=== PATIENT | male | born 1935 | race Caucasian/White ===

== ENCOUNTER 2018-04-27 07:34 | Inpatient (IN) ==
--- NOTE | 2018-04-27 08:03 | PROVIDER DOCUMENTATION ---
HPI-Fever - General Chief Complaint: Fever Stated Complaint: FEVER,SHAKING Time Seen by Provider: 04/27/18 08:02 Allergies/Adverse Reactions: Patient Allergies Allergy/AdvReac Type Severity Reaction Status Date / Time No Known Allergies Allergy Verified 04/01/18 13:23 Home Medications: Home Medication List Medication Instructions Recorded Confirmed Last Taken Type Aspirin [Aspir-Low] 81 mg PO AC 30 Days tablet. 12/22/17 04/27/18 04/03/18 21 :00 Rx Fluticasone/Salmeterol [Advair 1 puff IH BID 12/22/17 04/27/18 04/03/18 21:00 History 500-50 Diskus] Albuterol Sulfate [Ventolin Hfa] 18 gm IH PRN PRN 04/01/18 04/27/18 04/03/18 21: 00 History Amlodipine [Norvasc] 10 mg PO DAILY 04/01/18 04/27/18 04/04/18 04:30 History Apixaban [Eliquis] 5 mg PO BID 04/01/18 04/27/18 04/03/18 21:00 History Latanoprost 1 drop BOTH EYES QHS 04/01/18 04/27/18 04/03/18 21:00 History Losartan Potassium 50 mg PO DAILY 04/01/18 04/27/18 Unknown History Omeprazole 40 mg PO DAILY 04/01/18 04/27/18 04/03/18 21:00 History Propylene Glycol/Peg 400 [Systane 15 ml BOTH EYES BID 04/01/18 04/27/18 21:00 History 0.3-0.4% Eye Drops] Vit C/Vit E/[place]in/Min/[place]-3 1 each PO DAILY 04/01/18 04/27/18 04/03/18 21:00 History [Ocuvite Softgel] Hydrocodone/Acetaminophen [[place] 1 each PO Q6H PRN PRN #15 tablet 04/04/1804/27 Unknown Rx 10-325 Tablet] Ondansetron HCl [Zofran] 4 mg PO Q6H PRN PRN #5 tablet 04/04/18 04/27/18 Unknown Rx - History of Present Illness-Fever Nature of Presenting Problem: reports post-op fever on and off since apr 04, taken tylenol which controls the fever but came back. tmax 101.5. had bm not the last 3 days. and mild soreness/ sensitive to touch. some degrees nausea. history of asthma, HTN, GERD, prostate cancer. has a appt with his gen surgeon on may 20 Review of Systems - Adult - REVIEW OF SYSTEMS - ADULT Constitutional: reports: see HPI Eyes: reports: no symptoms reported Ears, Nose, Mouth & Throat: reports: no symptoms reported Cardiovascular: reports: no symptoms reported Respiratory: reports: no symptoms reported Gastrointestinal: reports: no symptoms reported Genitourinary: reports: no symptoms reported Musculoskeletal: reports: no symptoms reported Integumentary: reports: no symptoms reported Neurological: reports: no symptoms reported Psychiatric: reports: no symptoms reported Endocrine: reports: no symptoms reported Hematologic/Lymphatic: reports: no symptoms reported Allergic/Immunologic: reports: no symptoms reported All Other Systems: Reviewed and Negative Past History - Adult - PAST MEDICAL HISTORY-ADULT Review of Records: reports: Old Records Reviewed, Nursing Assessment Review, Medications Reviewed, Social history reviewed & non-contributory. Major Childhood Illnesses: reports: denies history Cardiovascular: reports: palpitations Respiratory: reports: asthma Gastrointestinal: reports: denies history Obstetrical/Gynecological: reports: denies history Genitourinary: reports: denies history Musculoskeletal: reports: denies history Neurological: reports: denies history Psychiatric: reports: denies history Endocrine/Immune: reports: denies history Other Conditions: reports: denies history - PRIOR SURGERIES/PROCEDURES Surgical/Procedure History: reports: cholecystectomy - IMMUNIZATION STATUS Childhood Immunizations: See Nurse Assessment Flu Vaccine: See Nurse Assessment - FAMILY HISTORY Family History: CAD over 55 yo, HTN, other (CHF) - SOCIAL HISTORY Smoking: denies Substance Use: none/never Alcohol Use Frequency: never Living Situation: family Physical Exam-General - PHYSICAL EXAM-ADULT Initial Vital Signs Reviewed: Yes - CONSTITUTIONAL General Appearance: appears well, alert, no apparent distress - EYES Eyes: PERRL/EOMI - HEAD, EARS, NOSE, MOUTH & THROAT HENMT: normocephalic/atraumatic, moist mucous membranes, hearing deficit - NECK Neck: non-tender, full range of motion - RESPIRATORY Respiratory: chest non-tender, lungs clear, normal breath sounds, no pleuratic chest pain - CARDIOVASCULAR Cardiovascular: normal peripheral pulses, regular rate, rhythm - GASTROINTESTINAL (ABDOMEN) Abdominal Exam: normal bowel sounds, other (2 incisions umbilical and lateral superior to the umbilicus) - MUSCULOSKELETAL Back Exam: normal inspection, no CVA tenderness, no vertebral tenderness Extremity: normal range of motion, non-tender, normal gait, normal inspection - SKIN Integumentary: normal color, normal turgor - NEUROLOGIC Neurologic: grossly normal, no motor/sensory deficits - PSYCHIATRIC Psych/Mental Status: normal mood/affect, normal thought content, normal thought process, oriented x 3 Progress - PLAN OF CARE/RESULTS Progress/Plan/Lab Results: Vital Signs - 8 hr 04/27/18 09:14 04/27/18 09:20 04/27/18 09:32 Pulse Rate 84 80 86 Respiratory Rate 23 14 20 Blood Pressure 128/71 149/69 O2 Sat by Pulse Oximetry 100 99 04/27/18 10:02 04/27/18 10:10 04/27/18 10:20 Pulse Rate 91 H 86 92 H Respiratory Rate 18 26 H 21 Blood Pressure 146/74 O2 Sat by Pulse Oximetry 98 98 99 04/27/18 10:30 04/27/18 10:32 04/27/18 10:40 Pulse Rate 89 94 H 97 H Respiratory Rate 20 19 20 Blood Pressure 141/74 O2 Sat by Pulse Oximetry 97 99 98 04/27/18 10:50 04/27/18 11:00 04/27/18 11:02 Pulse Rate 95 H 102 H 104 H Respiratory Rate 22 22 29 H Blood Pressure 146/81 O2 Sat by Pulse Oximetry 98 98 97 04/27/18 11:10 04/27/18 11:20 04/27/18 11:30 Pulse Rate 95 H 93 H 96 H Respiratory Rate 26 H 24 18 Blood Pressure O2 Sat by Pulse Oximetry 97 98 98 04/27/18 11:32 04/27/18 11:40 04/27/18 11:50 Pulse Rate 96 H 93 H 93 H Respiratory Rate 21 29 H 31 H Blood Pressure 142/64 O2 Sat by Pulse Oximetry 98 96 97 Laboratory Results - last 24 hr 04/27/18 04/27/18 04/27/18 08:50 08:55 08:55 WBC 12.25 H RBC 4.33 L Hgb 13.3 L Hct 40.1 L MCV 92.6 MCH 30.7 MCHC 33.2 RDW Std Deviation 12.1 Plt Count 380 MPV 9.8 Immature Gran % (Auto) 0.6 H Neut % (Auto) 79.2 H Lymph % (Auto) 9.5 L [place] % (Auto) 10.0 H Eos % (Auto) 0.4 Baso % (Auto) 0.3 Immature Gran # (Auto) 0.07 H Neut # (Auto) 9.70 H Lymph # (Auto) 1.16 L [place] # (Auto) 1.23 H Eos # (Auto) 0.05 Baso # (Auto) 0.04 PT INR PTT (Actin FS) Sodium 134 L Potassium 4.0 Chloride 92 L Carbon Dioxide 25 Anion Gap 17 BUN 29 H Creatinine 1.9 H Estimated GFR/1.73 m2 34 BUN/Creatinine Ratio 15 Glucose 106 H POC Glucose Calculated Osmolality 274 Calcium 8.9 Total Bilirubin 0.45 AST 20 ALT 24 Alkaline Phosphatase 98 Creatine Kinase 38 Troponin T Total Protein 6.2 L Albumin 3.5 Globulin 2.7 Albumin/Globulin Ratio 1.3 Plasma Lactate Urine Source VOIDED Urine Color YELLOW Urine Turbidity CLEAR Urine pH 5.5 Ur Specific [place] 1.023 Urine Protein 30 A Ur Glucose (Stick) NEGATIVE Ur Ketones (Stick) NEGATIVE Urine Blood NEGATIVE Urine Nitrite NEGATIVE Urine Bilirubin NEGATIVE Urobilinogen Dipstick NORMAL Urine Leukocytes NEGATIVE Urine WBC (Auto) <10 Urine RBC (Auto) <10 U Epithel Cells (Auto) <10 Urine Bacteria (Auto) NEGATIVE Urine Crystals Not Reportable Small Round Cells Not Reportable Urine Casts GRANULAR PRESENT Urine Yeast-like Cells Not Reportable 04/27/18 04/27/18 04/27/18 08:55 08:55 08:55 WBC RBC Hgb Hct MCV MCH MCHC RDW Std Deviation Plt Count MPV Immature Gran % (Auto) Neut % (Auto) Lymph % (Auto) [place] % (Auto) Eos % (Auto) Baso % (Auto) Immature Gran # (Auto) Neut # (Auto) Lymph # (Auto) [place] # (Auto) Eos # (Auto) Baso # (Auto) PT 18.3 H INR 1.41 PTT (Actin FS) 43.3 H Sodium Potassium Chloride Carbon Dioxide Anion Gap BUN Creatinine Estimated GFR/1.73 m2 BUN/Creatinine Ratio Glucose POC Glucose Calculated Osmolality Calcium Total Bilirubin AST ALT Alkaline Phosphatase Creatine Kinase Troponin T < 0.010 Total Protein Albumin Globulin Albumin/Globulin Ratio Plasma Lactate 2.6 H Urine Source Urine Color Urine Turbidity Urine pH Ur Specific [place] Urine Protein Ur Glucose (Stick) Ur Ketones (Stick) Urine Blood Urine Nitrite Urine Bilirubin Urobilinogen Dipstick Urine Leukocytes Urine WBC (Auto) Urine RBC (Auto) U Epithel Cells (Auto) Urine Bacteria (Auto) Urine Crystals Small Round Cells Urine Casts Urine Yeast-like Cells 04/27/18 04/27/18 10:57 12:08 WBC RBC Hgb Hct MCV MCH MCHC RDW Std Deviation Plt Count MPV Immature Gran % (Auto) Neut % (Auto) Lymph % (Auto) [place] % (Auto) Eos % (Auto) Baso % (Auto) Immature Gran # (Auto) Neut # (Auto) Lymph # (Auto) [place] # (Auto) Eos # (Auto) Baso # (Auto) PT INR PTT (Actin FS) Sodium Potassium Chloride Carbon Dioxide Anion Gap BUN Creatinine Estimated GFR/1.73 m2 BUN/Creatinine Ratio Glucose POC Glucose 113 H Calculated Osmolality Calcium Total Bilirubin AST ALT Alkaline Phosphatase Creatine Kinase Troponin T Total Protein Albumin Globulin Albumin/Globulin Ratio Plasma Lactate 1.4 Urine Source Urine Color Urine Turbidity Urine pH Ur Specific [place] Urine Protein Ur Glucose (Stick) Ur Ketones (Stick) Urine Blood Urine Nitrite Urine Bilirubin Urobilinogen Dipstick Urine Leukocytes Urine WBC (Auto) Urine RBC (Auto) U Epithel Cells (Auto) Urine Bacteria (Auto) Urine Crystals Small Round Cells Urine Casts Urine Yeast-like Cells Orders Category Date Time Status Cardiac Monitoring DIRECTED Care 04/27/18 08:04 Active Cardiac Monitoring DIRECTED Care 04/27/18 10:04 Active Finger Stick Blood Sugar (ED) DIRECTED Care 04/27/18 08:04 Active IV Insertion ORDERED Care 04/27/18 10:04 Completed Notify Physician As Ordered Care 04/27/18 10:04 Active Oxygen Therapy- ED Nursing DIRECTED Care 04/27/18 08:04 Active Saline Loc NOW Care 04/27/18 08:04 Active CHEST-1 VIEW [RAD] Stat Exams 04/27/18 10:[address] ABD/PELVIS W/ORAL CONT ONLY [CT] Stat Exams 04/27/18 11:22 Completed BLOOD CULTURE [BLDCUL] Stat Lab 04/27/18 09:15 Results CBC WITH ELECTRONIC DIFF [HEME] Stat Lab 04/27/18 08:55 Completed CK PROFILE [SP CHEM] Stat Lab 04/27/18 08:55 Completed COMPREHENSIVE METABOLIC PANEL [CHEM] Stat Lab 04/27/18 08:55 Completed LACTATE, PLASMA [CHEM] Lab 04/27/18 15:49 Ordered LACTATE, PLASMA [CHEM] Q3H Lab 04/27/18 12:08 Completed LACTATE, PLASMA [CHEM] Stat Lab 04/27/18 08:55 Completed PROTIME WITH INR [COAG] Stat Lab 04/27/18 08:55 Completed PTT [COAG] Stat Lab 04/27/18 08:55 Completed TROPONIN T Stat Lab 04/27/18 08:55 Completed URINALYSIS [URINALYSIS] Stat Lab 04/27/18 08:50 Completed URINE MANUAL MICROSCOPIC [URINALYSIS] Stat Lab 04/27/18 08:50 Completed 0.9% Sodium Chloride Inj [Ns] 1,000 ml Med 04/27/18 10:45 Active IV Wide Open Famotidine [Pepcid] Med 04/27/18 15:42 Discontinued 20 mg IV NOW ONE Piperacillin/Tazobactam [Zosyn] 3.375 gm Med 04/27/18 10:06 Discontinued 0.9% Sodium Chloride Inj [Ns] 50 ml IV NOW Sodium Chloride 0.9% Med 04/27/18 15:42 Discontinued 5 - 10 ml INJ NOW ONE Oxygen Device Stat Oth 04/27/18 10:04 Active EKG [EKG] Stat Ther 04/27/18 08:04 Ordered [facility] [address] [facility] [address], [place] [address] Department of Imaging Patient: JAXSON BAEZ ADM Date: 04/27/18 MR#: [id number] : 1935 ADM Status: REG ER Age/Sex: 83/M Room/Bed: Loc: ED Ordering Physician: Michelle Hatfield MD Family Physician: Sebas Pop MD Reason for Procedure: sob ___ Signed EXAM: CHEST-1 VIEW 04/27/2018 HISTORY: sob TECHNIQUE: AP portable upright at 1014 COMMENT: There is a fairly well-circumscribed nodular opacity which measures over 3.5 cm on the film just below the left hilum probably in the left lower lobe. There is a fairly large hiatal hernia. The nodule was not present on 12/22/2017. Otherwise the appearance the chest has not changed significantly. IMPRESSION: Nodule/mass left lower lobe. Electronically signed by Tashi Diggs 04/27/2018 10:23 AM 04/27/18 1023 Interpreting Physician: Tashi Diggs MD Dictated Date/Time: 04/27/18 1020 cc: Michelle Hatfield MD; Sebas Pop MD Result Diagrams: 04/27/18 08:55 04/27/18 08:55 - REASSESSMENT Reassessment #1 Time Reassessed: 14:58 Status: unchanged - CONSULTS/PCP/HOSPITALIST Notification #1 *Consult/PCP/Hospitalist*: Yary MEJÍA Time Discussed: 15:51 (PNA, sepsis) Consult Disposition: Admit Departure - Departure Date of Disposition Decision: 04/27/18 Time of Disposition Decision: 11:21 DIAGNOSIS: Pneumonia, Sepsis Disposition: ADMITTED INPATIENT 09 Certified Medical Emergency: Emergent Condition: Stable Referrals and Follow-Ups: Sebas Pop MD [Primary Care Provider] - - Critical Care Note This patient required my direct & personal management of CC.: No Attestation - Physician/ FELIX Attestation Patient care was provided by Advanced Practice Provider:: No The physician spent face to face time with patient:: Yes Advanced Practice Provider documentation review:: Supervising physician onsite and consulted in the evaluation and care of this patient. The physician did have a face to face encounter with the patient.
[2018-04-27 09:44] LABS: BILIRUBIN URINE NEGATIVE (NEGATIVE); BLOOD URINE NEGATIVE (NEGATIVE); COLOR YELLOW; GLUCOSE URINE NEGATIVE (NEGATIVE); KETONE URINE NEGATIVE (NEGATIVE); LEUKOCYTES URINE NEGATIVE (NEGATIVE); NITRITE URINE NEGATIVE (NEGATIVE); PH URINE 5.5; PROTEIN URINE 30 mg/dL (NEGATIVE); SP GRAVITY URINE 1.023; TURBIDITY URINE CLEAR (CLEAR); URINE SOURCE VOIDED; UROBILINOGEN URINE NORMAL (NORMAL)
[2018-04-27 09:45] LABS: BASO# 0.04 X1000 (0.0-0.2); BASO% 0.3 % (0.0-0.8)
[2018-04-27 09:54] LABS: EOS# 0.05 X1000 (0.0-0.7); EOS% 0.4 % (0.0-10.0); HEMATOCRIT 40.1 % (42.0-52.0); HEMOGLOBIN 13.3 g/dL (14.0-18.0); IMM GRAN# 0.07 X1000 (0.0-0.04); IMM GRAN% 0.6 % (0.0-0.5); INR 1.41; LYMPH# 1.16 X1000 (1.2-3.4); LYMPH% 9.5 % (20.5-51.1); MCH 30.7 PG (27-31); MCHC 33.2 g/dL (33-37); MCV 92.6 FL (81-99); MONO# 1.23 X1000 (0.11-0.59); MPV 9.8 FL (7.4-10.4); NEUT% 79.2 % (42.2-75.2); PLT 380 X1000 (130-400); PROTIME 18.3 Seconds (11.0-16.0); RBC 4.33 XMIL (4.7-6.1); RDW 12.1 % (11.5-14.5); WBC 12.25 X1000 (4.8-10.8)
[2018-04-27 09:55] LABS: PTT 43.3 Seconds (22.3-41.8)
[2018-04-27 09:59] LABS: UR EPITHELIAL CELLS <10 /HPF (<10); URINE BACTERIA NEGATIVE /HPF; URINE RBC <10 /HPF (<10); URINE WBC <10 /HPF (<10)
[2018-04-27] MEDS ORDERED: ZOSYN 3.375 GM in NS 50 ML IV ONE (10:06)
[2018-04-27 10:07] LABS: URINE CASTS GRANULAR PRESENT
[2018-04-27 10:15] LABS: ALB/GLOB RATIO 1.3; ALBUMIN 3.5 g/dL (3.5-5.0); CALCIUM 8.9 mg/dL (8.8-10.2); CREATININE 1.9 mg/dL (0.7-1.2); TOTAL BILIRUBIN 0.45 mg/dL (0.20-1.00); TOTAL PROTEIN 6.2 g/dL (6.3-8.3)
--- NOTE | 2018-04-27 10:25 | Diag Imaging Result Doc PS360 ---
EXAM: CHEST-1 VIEW 04/27/2018 HISTORY: sob TECHNIQUE: AP portable upright at 1014 COMMENT: There is a fairly well-circumscribed nodular opacity which measures over 3.5 cm on the film just below the left hilum probably in the left lower lobe. There is a fairly large hiatal hernia. The nodule was not present on 12/22/2017. Otherwise the appearance the chest has not changed significantly. IMPRESSION: Nodule/mass left lower lobe. Electronically signed by Tashi Diggs 04/27/2018 10:23 AM
[2018-04-27] MEDS ORDERED: NS 1,000 ML IV SCH (10:45)
--- NOTE | 2018-04-27 14:09 | GENERAL SURGERY CONSULTATION ---
DATE: 04/27/2018 TIME: 11:12 a.m. SUBJECTIVE: I have been asked to see Mr. St by Dr. Hatfield in the ED. Mr. St is 83 years old and had a robotic ventral hernia repair by Dr. Pan on 04/04/2018. He saw Dr. Pan 2 weeks later; that is around 04/18/2018, and was felt to be doing satisfactorily. He presents today because of some shaking and, yesterday, he had the shaking associated with fever over 101. He says the shaking has occurred since surgery but has not been associated with any fever that he is aware until yesterday. So what he was really alarmed about was the fact that he had fever yesterday associated with shaking. He has not contacted his medical doctor, Dr. Sebas Pop, about this. Apparently, Dr. Pan was not concerned about it at the time of the postoperative visit. Mr. St states that he has been eating. His bowels have been moving. His abdominal exam actually shows less distention and that is probably because of the repair of the hernia. He is chronically constipated and is on Linzess. He does report some cough recently. He has a past history of some asthma and gastroesophageal reflux disease. Some hypertension, history of prostate cancer. MEDICATIONS AT HOME: 1. Advair Diskus. 2. Amlodipine. 3. Eliquis. 4. Latanoprost ophthalmic solution. 5. Losartan. 6. Omeprazole. 7. Prednisone. 8. Ventolin. 9. Triamterene. ALLERGIES: He has no known drug allergies. SOCIAL HISTORY: He denies tobacco usage. Denies alcohol use. He does live at home with his . He is attended today by his nephew. PAST SURGICAL HISTORY: Previous surgery includes an appendectomy, cataract surgery, cholecystectomy, and prostatectomy. FAMILY HISTORY: Noncontributory. REVIEW OF SYSTEMS: This is primarily noted for the fever yesterday, the shaking. His other subsystems are okay. He does report a cough as well. PHYSICAL EXAMINATION: Vital Signs: On examination, in the emergency department , he is afebrile. Heart rate is 89, respiratory rate 20, blood pressure 146/74. General: He is awake, alert, and communicated. He does have a bit of a tremor. He has bilateral breath sounds. Heart: Regular rate and rhythm. Abdomen: Nontender. Bowel sounds are hypoactive. His wounds looked completely normal. There is no evidence of infection. DIAGNOSTICS/LABS: White count is 12,200. Hemoglobin 13.3, hematocrit 40, ProTime 18.3. INR 1.4. BUN 29, creatinine 1.2. ASSESSMENT: His abdominal exam is completely benign. He is 3 weeks after robotic ventral hernia repair. I did not think he has any intra-abdominal process that is causing his symptoms. His fever is probably related to something else, possibly an upper respiratory infection. I have discussed this with him as well as Dr. Hatfield, the ER physician. cc: Dionisio Gomez MD MTDD
--- NOTE | 2018-04-27 14:20 | Diag Imaging Result Doc PS360 ---
EXAM: CT ABD/PELVIS W/ORAL CONT ONLY 04/27/2018 HISTORY: ABSCESS TECHNIQUE: This exam was performed using automated exposure control, adjustment of mA or kV according to patient size, and/or use of iterative reconstruction technique. COMMENT: There is dense opacification of the visualized portion of the superior segment of the left lower lobe. There is atelectasis in the posterior costophrenic sulcus. Neither of these findings were present on the previous study of 09/30/2010. There is a large hiatal hernia which was present previously. There is a small left pleural effusion. There has been cholecystectomy. The spleen and adrenal glands pancreas and liver are grossly stable in appearance considering the lack of intravenous contrast on the current study. There is no evidence of abdominal aortic aneurysm or significant adenopathy. The small bowel is not distended. There is some stool in the right colon and transverse colon. The kidneys are without evidence of stones or hydronephrosis. There is a fairly large cyst in the lower pole of the right kidney measuring 3.7 cm in diameter. This is considerably smaller at the time the previous study. There is a prominent extrarenal pelvis on the right side which was also present at the time the previous study. Pelvis: There is oral contrast throughout most of the jejunum and all of the ileum. There are a few diverticula in the sigmoid colon without evidence of diverticulitis. There is no evidence of free fluid. The urinary bladder is unremarkable. There are bilateral fat-containing inguinal hernias. There has apparently been prostatectomy since the previous examination there is extensive arteriosclerosis. The regional skeleton is intact. IMPRESSION: Left lower lobe pneumonia. The possibility of neoplastic disease cannot be entirely excluded however. Electronically signed by Tashi Diggs 04/27/2018 2:18 PM
[2018-04-27] MEDS ORDERED: PEPCID IV ONE (15:42)
[2018-04-27] MEDS ORDERED: SODIUM CHLORIDE 0.9% INJ ONE (15:42)
[2018-04-27] MEDS ORDERED: DUONEB (A & A) INH PRN (15:57)
[2018-04-27] MEDS ORDERED: TYLENOL PO PRN (15:57)
[2018-04-27] MEDS ORDERED: VANCOMYCIN IV PER PHARMACY MISC SCH (16:00)
[2018-04-27] MEDS ORDERED: DULCOLAX PR ONE (16:29)
[2018-04-27] MEDS ORDERED: MYLICON PO PRN (16:29)
[2018-04-27] MEDS ORDERED: LACTULOSE PO ONE (16:29)
[2018-04-27] MEDS ORDERED: TUMS EXTRA STRENGTH PO ONE (16:29)
[2018-04-27] MEDS ORDERED: MYLICON PO ONE (16:29)
[2018-04-27] MEDS ORDERED: DULCOLAX PR PRN (16:29)
[2018-04-27] MEDS ORDERED: LACTULOSE PO PRN (16:29)
[2018-04-27] MEDS ORDERED: NS 1,000 ML IV ONE (16:30)
[2018-04-27] MEDS ORDERED: VANCOMYCIN 2 GM in NS 500 ML IV ONE ×2 (18:00→20:00)
[2018-04-27] MEDS: NORCO-10 PO PRN (18:11)
[2018-04-27] MEDS: NS 1,000 ML IV SCH (18:13)
[2018-04-27] MEDS: ZOSYN 3.375 GM in NS 50 ML IV SCH ×2 (18:13→22:37)
[2018-04-27] MEDS: PROTONIX IV SCH (18:13)
[2018-04-27] MEDS: TUMS EXTRA STRENGTH PO SCH ×2 (18:14→22:37)
--- NOTE | 2018-04-27 18:28 | HISTORY AND PHYSICAL ---
PRIMARY CARE PROVIDER: Dr. Sebas Pop. Last visit was in December 2017. GENERAL SURGEON: Most recently, Dr. Shanthi Pan. CHIEF COMPLAINT: Abdominal pain with excessive belching and shortness of breath. HISTORY OF PRESENT ILLNESS: Mr. Kemal St is an 83-year-old male with a medical history of asthma, severe gastroesophageal reflux disease due to a very large hiatal hernia, hypertension, and chronic atrial fibrillation, on Eliquis therapy. On 2017 as an outpatient procedure, he had robotic ventral hernia repair by Dr. Pan. Between the 2 weeks that he saw him from April 04 to April 18, he noticed that he was starting to get a little more weak. He was having more belching and more abdominal gastric distention and discomfort with nausea, but no vomiting, and was pretty routinely constipated. He only has bowel movements every 3-4 days. He feels like he has gotten weaker, but no change in his appetite. He visited with Dr. Pan, who told him to continue trying to improve his activities and that everything looked satisfactory, and he was supposed to return to see him once again on May 20. He presented with these complaints here. Dr. Gomez evaluated the patient at the bedside due to the fact that he has had recent surgery. His abdominal exam at that time was benign. Also noted that he has had fever and tachycardia. He had an elevated lactate and elevated white blood cell count. A CT of the abdomen and pelvis revealed that he actually has a left lower lobe pneumonia on top of having the large hiatal hernia. So, likely his abdominal discomfort is due to constipation on top of having a large hiatal hernia causing significant reflux, for which he takes Pepcid AC frequently throughout the day, which also adds to his excessive gas. His belly is a little hyperactive with very soft, air-like palpation, which is likely causing his abdominal pain and belching. So we will admit, treat for the pneumonia, and try to help his GI tract improve so he will not have so much abdominal pain. He does state that he has a cough with some white phlegm that is productive, and that he had a fever of 101.5 last night. PAST MEDICAL HISTORY: 1. Asthma. 2. GERD. 3. Large hiatal hernia. 4. Hypertension 5. Prostate cancer status post prostatectomy. 6. Chronic atrial fibrillation with frequent variation between fibrillation and sinus tachycardia. 7. Bilateral glaucoma. 8. Chronic constipation. 9. Bilateral fat-containing inguinal hernias. PAST SURGICAL HISTORY: 1. Robotic ventral hernia repair on 04/04/[address] Pan. 2. Appendectomy. 3. Cholecystectomy. 4. Prostatectomy. 5. Cataract surgery. SOCIAL HISTORY: Quit smoking around age 32, he says approximately 40 years ago. Prior to that, he smoked less than half a pack per day for at least 10 years. He denies smokeless tobacco. He has rare alcohol use. No illicit drugs. He lives at home with his . FAMILY HISTORY: Mother had hypertension and diabetes. Father had congestive heart failure. ALLERGIES: No known drug allergies. HOME MEDICATIONS: 1. Latanoprost in both eyes at night. 2. Albuterol sulfate p.r.n. 3. Norvasc 10 mg p.o. daily. 4. Eliquis 5 mg p.o. twice daily. 5. Advair 500-50, 1 puff inhaled twice daily. 6. Losartan potassium 50 mg p.o. daily. 7. Omeprazole 40 mg p.o. daily. 8. Systane in both eyes twice daily. 9. Ocuvite Softgel vitamins once daily. 10.Aspirin 81 mg p.o. daily. 11.Bob White 10, 1 p.o. every 6 hours p.r.n.. 12.Zofran 4 mg p.o. every 6 hours p.r.n. 13.(Not listed on home medication reconciliation): He does take Linzess as well. 14.He also takes Pepcid AC very frequently. REVIEW OF SYSTEMS: A 14-point review of systems is completed, and all are negative other than those mentioned above in the HPI. Positives are: 1. Subjective fever of 101.5 last night. 2. He has had nausea but no vomiting. 3. He has had constipation with bowel movements only every 3-4 days, with the last one being 3 days ago. 4. He has had abdominal pain with excessive belching. 5. He does have chills. 6. He has shortness of breath and decreased energy. PHYSICAL EXAMINATION: VITAL SIGNS: Temperature 98.1, heart rate 93, respiratory rate 21, blood pressure 142/64, O2 saturation 98% on room air. GENERAL: Mr. Kemal St is an 83-year-old male. He is in no acute distress. He is able to answer questions appropriately. He is hard of hearing. HEENT: Atraumatic, normocephalic. Pupils equal, round, and reactive to light. Extraocular movements are intact. Mucous membranes are dry. NECK: Trachea midline. CARDIOVASCULAR: S1 and S2, tachycardic rate and rhythm, but bounces in and out between an irregularly irregular tachycardic rate as well. He has +2 radial and dorsalis pedis pulses. Negative for JVD or carotid bruits. PULMONARY: Clear to auscultate. Bilateral breath sounds decreased in the bases. No accessory muscle use or work of breathing noted. Tolerating room air. GI: Soft. Mildly distended. Nontender with palpation. Hyperactive bowel sounds. EXTREMITIES: Moves all extremities equally with full range of motion. About 4/ 5 strength in all extremities. NEUROLOGIC: Alert and oriented x3. Follows commands. Sensory is intact. SKIN: Warm, dry and intact. There is some bruising over the incisional sites on the abdomen from the robotic surgery that appear to be healing quite well. There are no signs or symptoms of infection in those sites. LABORATORY DATA: White blood cells 12,000, hemoglobin 13, hematocrit 40, platelet count 380. INR is 1.41. PTT is 43.3. Sodium 134, potassium 4, BUN 29, creatinine 1.9, glucose 106. Calcium is 8.9, bilirubin 0.45, AST 20, ALT 24. CK 38, troponin less than 0.01, albumin 3.5. First serum lactate was 2.6, the second one 1.4, and the third one 1.2. Urinalysis showed 30 protein, otherwise negative. IMAGING: Chest x-ray: Nodule or mass in the left lower lobe. Abdomen and pelvis CT: Left lower lobe pneumonia. The possibility of neoplastic disease could not entirely be excluded, however. It does show that there is a large hiatal hernia that is not new. ASSESSMENT/PLAN: 1. Fever, chills, and signs of sepsis with left lower lobe pneumonia. He will be started on broad- spectrum antibiotics. He was given IV fluids. His lactate has now returned back to normal. Pulmonary toilet. 2. Asthma. Continue with nebulizers as needed and inhalers that he takes at home. 3. Epigastric discomfort with excessive gas and large hiatal hernia. This could be due to having backup of constipation, but we will do Tums for the gas and Pepcid also for the gas, and a proton pump inhibitor, Protonix IV twice daily. 4. Constipation. Will continue with Linzess. He can take MiraLAX. We have several p.r.n. medications like lactulose, and we will schedule Marley-Colace. We will give him a suppository as well to help get him regulated. The hiatal hernia with the constipation can add to the severe epigastric pain because he is having excessive gas with it. 5. Chronic paroxysmal atrial fibrillation. He goes in and out. He will be sinus tachycardia, and then he will be in fibrillation, and the rates are in the low 100s. We will continue with his Eliquis for now. 6. Hypertension. Continue home medications. 7. Dehydration with mild acute kidney injury. He will receive IV fluid hydration, and will recheck in the morning. 8. Deep venous thrombosis prophylaxis. He is on Eliquis. Dictated by ALFONZO Schwab for Jose Antonio Hills MD Addendum: Patient seen and examined by myself. Agree with ALFONZO note. It reflects my assessment and plan. Patient is being admitted to hospital for left lower lobe pneumonia. Will start IV antibiotics. For abdominal discomfort general will do CT abdomen and pelvis and will go from there. He has chronic A fib but his heart rate is controlled so will continue with home medications. Will monitor him closely. cc: ALFONZO Schwab MD [facility]
[2018-04-27] MEDS: ADVAIR 500/50 DISKUS INH SCH (19:30)
[2018-04-27] MEDS: SYSTANE EYE DROPS BOTH EYES SCH (22:36)
[2018-04-27] MEDS: PERICOLACE PO SCH (22:36)
[2018-04-27] MEDS: ELIQUIS PO SCH (22:36)
[2018-04-27] MEDS: XALATAN 0.005% OPH SOLN BOTH EYES SCH (22:52)
[2018-04-28] MEDS: NS 1,000 ML IV SCH ×4 (00:37→17:23)
[2018-04-28] MEDS: PROTONIX IV SCH ×3 (03:38→17:24)
[2018-04-28] MEDS: ZOSYN 3.375 GM in NS 50 ML IV SCH ×5 (03:55→22:55)
[2018-04-28] MEDS: LINZESS PO SCH (06:40)
[2018-04-28] MEDS ORDERED: PRILOSEC PO SCH (07:00)
[2018-04-28 07:15] LABS: BASO# 0.02 X1000 (0.0-0.2); BASO% 0.3 % (0.0-0.8); EOS# 0.02 X1000 (0.0-0.7); EOS% 0.3 % (0.0-10.0); HEMATOCRIT 33.8 % (42.0-52.0); HEMOGLOBIN 11.2 g/dL (14.0-18.0); IMM GRAN# 0.04 X1000 (0.0-0.04); IMM GRAN% 0.5 % (0.0-0.5); LYMPH# 0.91 X1000 (1.2-3.4); LYMPH% 11.4 % (20.5-51.1); MCHC 33.1 g/dL (33-37); MCV 93.6 FL (81-99); MONO# 0.63 X1000 (0.11-0.59); MONO% 7.9 % (1.7-9.3); MPV 9.3 FL (7.4-10.4); NEUT# 6.37 X1000 (1.4-6.5); NEUT% 79.6 % (42.2-75.2); PLT 276 X1000 (130-400); RBC 3.61 XMIL (4.7-6.1); RDW 12.1 % (11.5-14.5); WBC 7.99 X1000 (4.8-10.8)
[2018-04-28 07:35] LABS: ALBUMIN 2.8 g/dL (3.5-5.0); CREATININE 1.4 mg/dL (0.7-1.2); POTASSIUM 3.8 mmol/L (3.5-5.1); TOTAL BILIRUBIN 0.41 mg/dL (0.20-1.00); TOTAL PROTEIN 5.6 g/dL (6.3-8.3)
[2018-04-28] MEDS: NORVASC PO SCH (08:07)
[2018-04-28] MEDS: TUMS EXTRA STRENGTH PO SCH ×4 (08:07→20:20)
[2018-04-28] MEDS: COZAAR PO SCH (08:07)
[2018-04-28] MEDS: PERICOLACE PO SCH ×2 (08:07→20:20)
[2018-04-28] MEDS: OCUVITE LUTEIN & ZEAXANTHIN PO SCH (08:07)
[2018-04-28] MEDS: SYSTANE EYE DROPS BOTH EYES SCH ×2 (08:07→20:20)
[2018-04-28] MEDS: ELIQUIS PO SCH ×2 (08:07→20:20)
[2018-04-28] MEDS: ASPIRIN EC PO SCH (08:07)
[2018-04-28] MEDS: NORCO-10 PO PRN ×2 (08:12→14:13)
[2018-04-28] MEDS ORDERED: MIRALAX PO SCH (09:00)
--- NOTE | 2018-04-28 16:23 | Diag Imaging Result Doc PS360 ---
EXAM: CT THORAX W/O CONTRAST 04/28/2018 HISTORY: lung mass TECHNIQUE: This exam was performed using automated exposure control, adjustment of mA or kV according to patient size, and/or use of iterative reconstruction technique. COMMENT: There are no previous thoracic studies available for comparison. Comparison is made with the previous abdominal studies of 04/27/2018 and 09/30/2010 where possible. There is dense alveolar opacity in the superior segment of the left lower lobe which has increased considerably in extent since the previous abdominal study of 04/27/2018. Given the rapid change, this is probably related to a round pneumonia. There are some platelike atelectasis in the posterior costophrenic sulcus of the right lower lobe which has not changed appreciably since the previous abdominal study. There is a right pleural effusion which was also present previously but has increased slightly in volume. There is a hiatal hernia. There is no evidence of significant adenopathy. The regional skeleton is intact. IMPRESSION: Left lower lobe pneumonia and pleural effusion. Electronically signed by Tashi Diggs 04/28/2018 4:21 PM
[2018-04-28] MEDS: SODIUM CHLORIDE 0.9% INJ SCH (17:24)
--- NOTE | 2018-04-28 19:07 | PROGRESS NOTE ---
DATE: 04/28/2018 SUBJECTIVE: The patient reports feeling fine. Breathing better comparing with yesterday. No abdominal pain. No belching, but he reports that he has poor appetite that he attributes to his hiatal hernia. OBJECTIVE: Vital Signs: Temperature 100.1, heart rate 88, respiratory rate 17 , blood pressure 111/60, O2 sat 99% on room air. General: This is an 83-year-old male lying in bed in no acute distress. Cardiovascular: S1, S2 heard. No murmurs, gallops or rubs. Irregularly irregular heart rhythm. Respiratory: Clear bilaterally to auscultation. No work of breathing or using accessory muscles. Abdomen: Soft, a little bit distended, but nontender to palpation. Hyperactive bowel sounds. No organomegaly noted. Neurologic: Patient is alert and oriented x 3. Moves 4 extremities. LABORATORY DATA: Reviewed and white count 7.99, with hemoglobin 11.2, 134. Creatinine 1.4. ASSESSMENT AND PLAN: 1. Left lower lobe pneumonia. We will continue with antibiotics. In this case , the patient is an vancomycin and Zosyn. Considering his renal dysfunction, I would rather prefer to switch antibiotics to ceftaroline one 600 mg q.12. We will continue with same management. 2. Epigastric discomfort. The patient reports that the hiatal hernia symptoms are getting worse and family requests to have a consultation with Dr. Gilles Sandoval who is his primary GI. We will definitely follow that suggestion. 3. Pulmonary nodule. The abdomen pelvis CT shows a dense opacification in the superior segment of the left lower lobe. Also, the x-ray showed a nodular mass in the left lower lobe. That is the reason why I prefer to do a CT of the chest without contrast to have better visualization of the lung anatomy and depending upon the result we will consult Pulmonary. 4. Paroxysmal atrial fibrillation. We will continue with Eliquis for now. 5. Hypertension. Blood pressure is under control. We will continue with same management. 6. Acute kidney injury. Creatinine continues to improve after IV fluids were provided. We will continue with same management. 7. Disposition. Depending upon the results of the CAT scan of the chest we will see if we need to consult Pulmonary. cc: Jose Antonio Hills MD MTDD
[2018-04-28] MEDS: ADVAIR 500/50 DISKUS INH SCH (19:25)
[2018-04-28] MEDS: XALATAN 0.005% OPH SOLN BOTH EYES SCH (20:22)
[2018-04-29] MEDS: NS 1,000 ML IV SCH ×2 (02:32→10:41)
[2018-04-29] MEDS ORDERED: VANCOMYCIN 1.6 GM in NS 250 ML IV SCH ×2 (03:00→20:00)
[2018-04-29] MEDS: PROTONIX IV SCH (05:56)
[2018-04-29] MEDS: LINZESS PO SCH ×2 (05:57→06:35)
[2018-04-29] MEDS: ZOSYN 3.375 GM in NS 50 ML IV SCH ×2 (05:57→10:40)
[2018-04-29] MEDS: SODIUM CHLORIDE 0.9% INJ SCH (05:57)
[2018-04-29] MEDS: ADVAIR 500/50 DISKUS INH SCH ×2 (08:00)
[2018-04-29] MEDS ORDERED: MIRALAX PO ONE (09:59)
[2018-04-29 10:18] LABS: BASO# 0.02 X1000 (0.0-0.2); BASO% 0.3 % (0.0-0.8); EOS# 0.02 X1000 (0.0-0.7); EOS% 0.3 % (0.0-10.0); HEMATOCRIT 33.9 % (42.0-52.0); HEMOGLOBIN 11.2 g/dL (14.0-18.0); IMM GRAN# 0.04 X1000 (0.0-0.04); IMM GRAN% 0.6 % (0.0-0.5); LYMPH# 1.32 X1000 (1.2-3.4); LYMPH% 18.8 % (20.5-51.1); MCH 30.7 PG (27-31); MCV 92.9 FL (81-99); MONO# 0.56 X1000 (0.11-0.59); NEUT# 5.06 X1000 (1.4-6.5); PLT 252 X1000 (130-400); RBC 3.65 XMIL (4.7-6.1); WBC 7.02 X1000 (4.8-10.8)
[2018-04-29 10:35] VITALS: BP 125/60
[2018-04-29 10:35] LABS: AGAP 13; BUN 11 mg/dL (8-22); CALCIUM 8.3 mg/dL (8.8-10.2); CHLORIDE 102 mmol/L (98-107); COSMO 271; CREATININE 1.1 mg/dL (0.7-1.2); ESTIMATED GFR > 60; GLUCOSE 100 mg/dL (70-104); POTASSIUM 3.4 mmol/L (3.5-5.1); SODIUM 136 mmol/L (136-145); TCO2 21 mmol/L (25-35)
[2018-04-29] MEDS: ASPIRIN EC PO SCH (10:39)
[2018-04-29] MEDS: TUMS EXTRA STRENGTH PO SCH (10:39)
[2018-04-29] MEDS: NORVASC PO SCH (10:39)
[2018-04-29] MEDS: ELIQUIS PO SCH (10:39)
[2018-04-29] MEDS: COZAAR PO SCH (10:39)
[2018-04-29] MEDS: PERICOLACE PO SCH (10:39)
[2018-04-29] MEDS: OCUVITE LUTEIN & ZEAXANTHIN PO SCH (10:42)
[2018-04-29] MEDS: SYSTANE EYE DROPS BOTH EYES SCH (10:44)
--- NOTE | 2018-04-29 12:01 | PROGRESS NOTE ---
DATE: 04/29/2018 please see the dictated note for 04-29-18 cc: Gilles Sandoval MD MTDNeymar
--- NOTE | 2018-04-29 12:02 | CONSULTATION ---
DATE OF CONSULTATION: 04/29/2018 REFERRING PHYSICIAN: Jose Antonio Hills MD PRIMARY CARE DOCTOR: Sebas Pop MD. REASON FOR CONSULTATION: Abdominal discomfort, bloating, burping. HISTORY OF PRESENT ILLNESS: Mr. St is an 83-year-old male, who was admitted on 04/27/2018 for symptoms of abdominal discomfort with excessive belching and shortness of breath. He has history of reflux disease and longstanding Aquino's. His last colonoscopy was done in 2015, which showed diverticulosis and constipation. His EGD was done in January 2017 which showed a long segment Aquino's which was biopsied and indeterminate for dysplasia. The patient also has history of chronic atrial fibrillation and has been on Eliquis. He was admitted for worsening belching and burping and bloating and discomfort in the upper abdomen. He also complained of some shortness of breath in the hospital. A CT scan was done which showed evidence of left lower lobe pneumonia and large hiatal hernia. Gastroenterology is consulted for further management. PAST MEDICAL HISTORY: Aquino's esophagus. Hiatal hernia. Reflux disease. Diverticulosis. Hypertension. Prostate cancer, status post prostatectomy. Chronic atrial fibrillation. Bilateral glaucoma. Chronic constipation. Bilateral fat-containing inguinal hernia. PAST SURGICAL HISTORY: Robotic ventral hernia repair on 04/04/[address] Pan. Appendectomy. Cholecystectomy. Prostatectomy. Cataract surgery. EGD and colonoscopy 2015. EGD in January 2017. SOCIAL HISTORY: He quit smoking around age 32. He has rare alcohol use. No illicit drug abuse. He lives at home with his . FAMILY HISTORY: Mother had hypertension, diabetes. Father had congestive heart failure. ALLERGIES: No known drug allergies. MEDICATIONS IN THE HOSPITAL: Latanoprost, Tylenol Albuterol/ipratropium, Norvasc, Eliquis 5 mg p.o. b.i.d., aspirin 81 mg every day, Dulcolax 10 mg every 6 hours as needed, hydrocodone/acetaminophen, iron C b.i.d., lactulose 30 mL p.o. daily as needed, Linzess 290 mcg every day, Cozaar 50 mg every day, normal saline 1-2 times per hour every day, Protonix 40 mg IV b.i.d., MiraLAX 17 g p.o. daily, Marley-Colace 2 capsules p.o. b.i.d., Mylicon 4 times a day as needed, multivitamin and Zosyn. DIET: He is currently on a regular diet. REVIEW OF SYSTEMS: Denies any current fevers, rigors, chills, chest pain, or shortness of breath at the moment. He denies any vomiting blood or passing blood in the stools. He does complain of constipation and bloating. He does complain of belching and bloating. He denies any black stools. He does have history of arthritis. Denies any neurologic complaints. OBJECTIVE: Vital signs: Temperature 98.9, pulse rate 69, respiratory rate 22, blood pressure 132/59, saturating 98% on room air. Body weight of 171 pounds, BMI 23.8 kg/m2. General appearance: Moderately built, moderately nourished, lying in bed, in no acute distress. HEENT: Mild pallor. No icterus. Pupils equal, reactive to light. Neck: Supple. Abdomen: Protuberant, tympanic on percussion. No rebound or guarding. Extremities: No cyanosis, clubbing. Neurologic: Alert, awake, oriented x3. LABORATORIES: Hemoglobin and hematocrit is 11.2 and 33.9, white count of 7.02, platelet count of 232,000. Sodium 138, potassium 3.8, chloride 99, bicarb of 24, anion gap 11, BUN of 19, creatinine 1.4, glucose 93, calcium is 8, total bilirubin is 0.41, AST 18, ALT 22, alkaline phosphatase 98, total protein 5.6, albumin of 2.8. Blood culture x2 negative at 48 hours from 04/27/2018. IMAGING: An abdominal and pelvic CT scan on 04/27/2018 showed left lower lobe pneumonia, small left pleural effusion. There has been cholecystectomy. Some stool in the right colon, transverse colon. Fairly large cysts in the lower pole of the right kidney measuring 3.7 cm in diameter. Oral contrast throughout most of jejunum and all the ileum. A few diverticula in the sigmoid colon without evidence of diverticulitis. There are bilateral fat-containing inguinal hernia. There has apparently been prostatectomy. There is extensive arteriosclerosis. IMPRESSION AND PLAN: 1. Epigastric discomfort. 2. Belching and burping. 3. Bloating. 4. Constipation. 5. Large hiatal hernia. 6. 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 7. Left lower lobe pneumonia. 8. Paroxysmal atrial fibrillation. 9. Anemia. RECOMMENDATIONS: 1. We will continue on Protonix twice daily. On discharge, he will take Prilosec 40 mg twice daily for now. Continue to follow gastroesophageal reflux life changes. Avoid excessive tea, coffee, soda, tomatoes, onions, spicy foods. 2. The patient will need a repeat EGD. We will get it scheduled as an outpatient. Before the EGD, may have to come off aspirin and Eliquis for a few days. 3. For constipation, continue Linzess 290 mcg every day and we will start him on MiraLAX twice daily. 4. We will start him on Iron C b.i.d. and multivitamin once daily for anemia. 5. The patient will call office to schedule an outpatient EGD. We also offered inpatient EGD, but the patient has to be off Eliquis for 24 to 48 hours before proceeding. The patient is likely going home today, so he will call us as an outpatient and schedule an appointment. 6. The above plan of care discussed with the patient and all questions answered. Please call us with any further questions. cc: MD Sebas Asif MD
[2018-04-29] MEDS ORDERED: ICAR-C PO SCH (21:00)
[2018-04-29] MEDS ORDERED: MIRALAX PO SCH (21:00)
--- NOTE | 2018-04-30 05:43 | DISCHARGE SUMMARY ---
ADMISSION DATE: 04/27/2018 DISCHARGE DATE: 04/29/2018 DISCHARGE DIAGNOSES: 1. Left lower lobe pneumonia. 2. Hiatal hernia. 3. Constipation. 4. Chronic paroxysmal atrial fibrillation on anticoagulation. 5. Hypertension. 6. Acute kidney injury, resolved. CONSULTATIONS: 1. Dr. Sandoval from GI. 2. Dr. Dionisio Gomez from General Surgery. PROCEDURES: 1. Chest x-ray done on admission shows nodule/mass in the left lower lobe. 2. CT of the abdomen and pelvis showed left lower lobe pneumonia with possibility of neoplastic disease, cannot be entirely excluded. 3. Chest CT showed left lower lobe pneumonia and pleural effusion. HOSPITAL COURSE: This is an 83-year-old male with past medical history of asthma, severe gastroesophageal reflux disease, due to a very large hiatal hernia, and chronic atrial fibrillation on Eliquis. He came to the emergency department complaining of some abdominal pain. So, he was evaluated by general surgeon. Also, we found out in the imaging that he had a left lower lobe pneumonia. The CT of the abdomen described a nodule in the lung that was completely ruled out, by the CT of the chest. The patient had elevated white cell count with mild subjective difficulty in breathing, but he was not requiring any oxygen supplementation. The patient started feeling better. So also, we consulted Dr. Sandoval, at the request to the family. He was evaluated by him, and he recommends an endoscopy as an outpatient, considering that he needs to be on Eliquis for at least a few days. The patient is breathing better, never requiring any oxygen supplementation. So, we are going to send this patient home with self care. DISCHARGE PHYSICAL EXAMINATION: Vital signs: Temperature 99.2 degrees, heart rate 70, respiratory rate 20, blood pressure 125/60, O2 saturation 98% on room air. General: This is an 83-year-old male, lying in bed, in no acute distress. HEENT: Head is normocephalic and atraumatic. Neck: No JVD noted. No carotid bruits. No lymphadenopathy. No thyromegaly. Cardiovascular: S1, S2 heard. No murmurs, gallops, or rubs. Regular rate and rhythm. Respiratory: Clear bilaterally to auscultation. No work of breathing or using accessory muscles. Abdomen: Soft, nontender to palpation. Bowel sounds present. No organomegaly. Extremities: No clubbing, cyanosis, or edema. Peripheral pulses present in both legs. Neurological: Patient is alert and oriented x3. Moves 4 extremities. DISCHARGE DISPOSITION: Home to self-care. FOLLOWUP: With his primary care physician in a week, with Dr. Gilles Sandoval in 2 to 3 weeks. TIME DISCHARGING THIS PATIENT: 25 minutes. cc: Jose Antonio Hills MD
== END 2018-04-29 14:44 | disposition home or self-care (01) | DRG 871 ==
LOC: ED 07:34 → 3N 17:31
PROVIDERS: ATTEND Internal Medicine
CPT/HCPCS: 71010; 71045; 71250; 74176; 80048; 80053; 81001; 82550; 82948; 83605; 84484; 85025; 85610; 85730; 87040; 93005; 94640; 94760; 96365; 96375; 99285; A9270; C9113; J2543; J3370; J7030; J7040; S0028; S0164; XXXXX

== ENCOUNTER 2018-10-07 07:11 | Inpatient (IN) ==
[2018-10-07 08:29] LABS: AGAP 10; ALB/GLOB RATIO 1.7; ALBUMIN 3.6 g/dL (3.5-5.0); ALKALINE PHOSPHATASE 48 U/L (32-122); BUN 25 mg/dL (8-22); CALCIUM 8.6 mg/dL (8.8-10.2); CHLORIDE 102 mmol/L (98-107); COSMO 283; CREATININE 1.1 mg/dL (0.7-1.2); ESTIMATED GFR > 60; GLUCOSE 143 mg/dL (70-104); GOT 9 U/L (10-34); GPT 8 U/L (10-44); POTASSIUM 4.6 mmol/L (3.5-5.1); SODIUM 138 mmol/L (136-145); TCO2 26 mmol/L (25-35); TOTAL BILIRUBIN 0.38 mg/dL (0.20-1.00); TOTAL PROTEIN 5.7 g/dL (6.3-8.3)
[2018-10-07 08:30] LABS: BASO# 0.02 X1000 (0.0-0.2); BASO% 0.2 % (0.0-0.8); EOS# 0.01 X1000 (0.0-0.7); EOS% 0.1 % (0.0-10.0); HEMATOCRIT 33.5 % (42.0-52.0); HEMOGLOBIN 11.3 g/dL (14.0-18.0); IMM GRAN# 0.09 X1000 (0.0-0.04); IMM GRAN% 0.8 % (0.0-0.5); LYMPH# 1.29 X1000 (1.2-3.4); LYMPH% 11.3 % (20.5-51.1); MCHC 33.7 g/dL (33-37); MCV 91.8 FL (81-99); MONO# 0.64 X1000 (0.11-0.59); MONO% 5.6 % (1.7-9.3); MPV 9.2 FL (7.4-10.4); NEUT# 9.35 X1000 (1.4-6.5); PLT 358 X1000 (130-400); RBC 3.65 XMIL (4.7-6.1); RDW 12.6 % (11.5-14.5)
[2018-10-07 08:30] LABS: URINE SOURCE CLEAN CATCH
[2018-10-07 08:34] LABS: INR 1.04; PROTIME 14.4 Seconds (11.0-16.0)
[2018-10-07 08:35] LABS: PTT 29.9 Seconds (22.3-41.8)
[2018-10-07 08:38] LABS: BILIRUBIN URINE NEGATIVE (NEGATIVE); BLOOD URINE NEGATIVE (NEGATIVE); COLOR YELLOW; GLUCOSE URINE NEGATIVE (NEGATIVE); KETONE URINE 10 mg/dL (NEGATIVE); LEUKOCYTES URINE NEGATIVE (NEGATIVE); NITRITE URINE NEGATIVE (NEGATIVE); PH URINE 5.5; PROTEIN URINE 30 mg/dL (NEGATIVE); SP GRAVITY URINE 1.034; TURBIDITY URINE CLEAR (CLEAR); UR EPITHELIAL CELLS <10 /HPF (<10); URINE BACTERIA NEGATIVE /HPF; URINE RBC <10 /HPF (<10); URINE WBC <10 /HPF (<10); UROBILINOGEN URINE NORMAL (NORMAL)
--- NOTE | 2018-10-07 09:28 | Diag Imaging Result Doc PS360 ---
CT ABD/PELVIS W/IV CONT ONLY - 10/07/2018 INDICATION: lower GI bleeding COMPARISON: 04/27/2018 FINDINGS: The lung bases are clear and the heart size is normal. Stable large hiatal hernia with a round half of the stomach up in the chest. Stable cholecystectomy changes. Otherwise all abdominal organs remain normal. Stable large benign right renal cyst. Stable moderately advanced calcified vascular disease throughout the aorta and pelvic arteries. The femoral arteries are also included. No bowel obstruction or inflammation. Prostate gland is not demonstrated. Urinary bladder and rectum are normal. There are moderate degenerative changes of the spine. No acute or suspicious bony lesion. IMPRESSION: Rather large hiatal hernia. Otherwise, no acute process. This exam was performed using automated exposure control, adjustment of mA or kV according to patient size, and/or use of iterative reconstruction technique Electronically signed by Rudy Cheng 10/07/2018 9:26 AM
--- NOTE | 2018-10-07 09:50 | PROVIDER DOCUMENTATION ---
HPI-Abdominal Pain/GI Problem - General Chief Complaint: GI Bleed Stated Complaint: RECTAL BLEEDING Time Seen by Provider: 10/07/18 07:26 Source: patient, family Allergies/Adverse Reactions: Patient Allergies Allergy/AdvReac Type Severity Reaction Status Date / Time No Known Allergies Allergy Verified 04/27/18 16:13 Home Medications: Home Medication List Medication Instructions Recorded Confirmed Last Taken Type Aspirin [Aspir-Low] 81 mg PO AC 30 Days tablet. 12/22/17 04/27/18 04/03/18 21:00 Rx Fluticasone/Salmeterol [Advair 1 puff IH BID 12/22/17 04/27/18 04/03/18 21:00 History 500-50 Diskus] Albuterol Sulfate [Ventolin Hfa] 18 gm IH PRN PRN 04/01/18 04/27/18 04/03/18 21:00 History Amlodipine [Norvasc] 10 mg PO DAILY 04/01/18 04/27/18 04/04/18 04:30 History Apixaban [Eliquis] 5 mg PO BID 04/01/18 04/27/18 04/03/18 21:00 History Latanoprost 1 drop BOTH EYES QHS 04/01/18 04/27/18 04/03/18 21:00 History Losartan Potassium 50 mg PO DAILY 04/01/18 04/27/18 Unknown History Propylene Glycol/Peg 400 [Systane 15 ml BOTH EYES BID 04/01/18 04/27/18 04/03/18 21:00 History 0.3-0.4% Eye Drops] Vit C/Vit E/L[place]in/Min/[place]-3 1 each PO DAILY 04/01/18 04/27/18 04/03/18 21:00 History [Ocuvite Softgel] Hydrocodone/Acetaminophen [[place] 1 each PO Q6H PRN PRN #15 tablet 04/04/18 04/27/18 Unknown Rx 10-325 Tablet] Ondansetron HCl [Zofran] 4 mg PO Q6H PRN PRN #5 tablet 04/04/18 04/27/18 Unknown Rx Iron Carbonyl/Ascorbic Acid 1 tab PO BID #60 tab 04/29/18 Unknown Rx [Icar-C] Levofloxacin [Levaquin] 750 mg PO DAILY #10 tab 04/29/18 Unknown Rx Omeprazole 40 mg PO BID #60 capsule. 04/29/18 Unknown Rx Polyethylene Glycol 3350 [Miralax] 17 gm PO BID powder, packet 04/29/18 Unknown Rx - History of Present Illness-ABD Nature of Presenting Problems: 83 y/o WM c/o 2 episodes of bright red lower GI bleeding since this am where he states that he filled the bowl. Pt denies this hx of GI bleeding in the past and takes eloquis. Abdominal Pain Onset Location: reports: generalized abdomen Pain Radiation: reports: no radiation Quality of Pain: reports: cramping Severity in ED: reports: mild Onset/Duration: reports: this morning Timing: reports: still present, improving Activities at Onset: reports: light activity Exposure to sick contacts?: No Modifying Factors: improves with: defecating Last BM: this morning Dark Stools Present?: reports: bright red blood Rectal Bleeding: reports: blood mixed with stool # of Diarrhea Episodes: 2 Rectal Pain: reports: none Emesis Description: reports: none Bruising or Bleeding Gums?: No Similar Symptoms Previously?: No Recently seen or treated by another doctor?: No Review of Systems - Adult - REVIEW OF SYSTEMS - ADULT Constitutional: reports: no symptoms reported, see HPI Eyes: reports: no symptoms reported, see HPI Ears, Nose, Mouth & Throat: reports: no symptoms reported, see HPI Cardiovascular: reports: no symptoms reported, see HPI Respiratory: reports: no symptoms reported, see HPI Gastrointestinal: reports: see HPI, abdominal pain, rectal bleeding Genitourinary: reports: no symptoms reported, see HPI Musculoskeletal: reports: no symptoms reported, see HPI Integumentary: reports: no symptoms reported, see HPI Neurological: reports: no symptoms reported, see HPI Psychiatric: reports: no symptoms reported, see HPI Endocrine: reports: no symptoms reported, see HPI Hematologic/Lymphatic: reports: no symptoms reported, see HPI Allergic/Immunologic: reports: no symptoms reported, see HPI All Other Systems: Reviewed and Negative Past History - Adult - PAST MEDICAL HISTORY-ADULT Review of Records: reports: Nursing Assessment Review, Medications Reviewed, Social history reviewed & non-contributory. Major Childhood Illnesses: reports: denies history Cardiovascular: reports: palpitations Respiratory: reports: asthma Gastrointestinal: reports: denies history Obstetrical/Gynecological: reports: denies history Genitourinary: reports: denies history Musculoskeletal: reports: denies history Neurological: reports: denies history Psychiatric: reports: denies history Endocrine/Immune: reports: denies history Other Conditions: reports: denies history - PRIOR SURGERIES/PROCEDURES Surgical/Procedure History: reports: cholecystectomy - IMMUNIZATION STATUS Childhood Immunizations: See Nurse Assessment Flu Vaccine: See Nurse Assessment - FAMILY HISTORY Family History: CAD over 55 yo, HTN, other (CHF) Physical Exam-General - PHYSICAL EXAM-ADULT Initial Vital Signs Reviewed: Yes - CONSTITUTIONAL General Appearance: appears well, alert, no apparent distress - EYES Eyes: PERRL/EOMI - HEAD, EARS, NOSE, MOUTH & THROAT HENMT: normocephalic/atraumatic, moist mucous membranes - NECK Neck: non-tender, full range of motion, supple, normal inspection - RESPIRATORY Respiratory: chest non-tender, lungs clear, normal breath sounds, no pleuratic chest pain, no respiratory distress, no accessory muscle use - CARDIOVASCULAR Cardiovascular: normal peripheral pulses, regular rate, rhythm, no edema, no gallop, no JVD, no murmur - GASTROINTESTINAL (ABDOMEN) Abdominal Exam: normal bowel sounds, non tender, soft, no organomegaly - LYMPHATIC Lymphatic: no adenopathy - MUSCULOSKELETAL Back Exam: normal inspection, no CVA tenderness, no vertebral tenderness Extremity: normal range of motion, non-tender, normal gait, normal inspection, no pedal edema, no calf tenderness, normal capillary refill - SKIN Integumentary: normal color, normal turgor - NEUROLOGIC Neurologic: machine deburrer II-XII nml as tested, grossly normal, no motor/sensory deficits - PSYCHIATRIC Psych/Mental Status: normal mood/affect, normal thought content, normal thought process, oriented x 3 Progress - PLAN OF CARE/RESULTS Progress/Plan/Lab Results: Vital Signs - 8 hr 10/07/18 07:20 10/07/18 08:06 10/07/18 08:10 Temperature 97.4 F L Pulse Rate 105 H 96 H Respiratory Rate 20 18 Blood Pressure 104/64 122/69 O2 Sat by Pulse Oximetry 100 95 100 10/07/18 08:20 Temperature Pulse Rate Respiratory Rate Blood Pressure O2 Sat by Pulse Oximetry 99 Laboratory Results - last 24 hr 10/07/18 10/07/18 10/07/18 08:12 08:12 08:12 WBC 11.40 H RBC 3.65 L Hgb 11.3 L Hct 33.5 L MCV 91.8 MCH 31.0 MCHC 33.7 RDW Std Deviation 12.6 Plt Count 358 MPV 9.2 Immature Gran % (Auto) 0.8 H Neut % (Auto) 82.0 H Lymph % (Auto) 11.3 L [place] % (Auto) 5.6 Eos % (Auto) 0.1 Baso % (Auto) 0.2 Immature Gran # (Auto) 0.09 H Neut # (Auto) 9.35 H Lymph # (Auto) 1.29 [place] # (Auto) 0.64 H Eos # (Auto) 0.01 Baso # (Auto) 0.02 PT 14.4 INR 1.04 PTT (Actin FS) 29.9 Sodium 138 Potassium 4.6 Chloride 102 Carbon Dioxide 26 Anion Gap 10 BUN 25 H Creatinine 1.1 Estimated GFR/1.73 m2 > 60 BUN/Creatinine Ratio 23 Glucose 143 H Calculated Osmolality 283 Calcium 8.6 L Total Bilirubin 0.38 AST 9 L ALT 8 L Alkaline Phosphatase 48 Total Protein 5.7 L Albumin 3.6 Globulin 2.1 Albumin/Globulin Ratio 1.7 Urine Source Urine Color Urine Turbidity Urine pH Ur Specific [place] Urine Protein Ur Glucose (Stick) Ur Ketones (Stick) Urine Blood Urine Nitrite Urine Bilirubin Urobilinogen Dipstick Urine Leukocytes Urine WBC (Auto) Urine RBC (Auto) U Epithel Cells (Auto) Urine Bacteria (Auto) 10/07/18 08:15 WBC RBC Hgb Hct MCV MCH MCHC RDW Std Deviation Plt Count MPV Immature Gran % (Auto) Neut % (Auto) Lymph % (Auto) [place] % (Auto) Eos % (Auto) Baso % (Auto) Immature Gran # (Auto) Neut # (Auto) Lymph # (Auto) [place] # (Auto) Eos # (Auto) Baso # (Auto) PT INR PTT (Actin FS) Sodium Potassium Chloride Carbon Dioxide Anion Gap BUN Creatinine Estimated GFR/1.73 m2 BUN/Creatinine Ratio Glucose Calculated Osmolality Calcium Total Bilirubin AST ALT Alkaline Phosphatase Total Protein Albumin Globulin Albumin/Globulin Ratio Urine Source CLEAN CATCH Urine Color YELLOW Urine Turbidity CLEAR Urine pH 5.5 Ur Specific [place] 1.034 Urine Protein 30 A Ur Glucose (Stick) NEGATIVE Ur Ketones (Stick) 10 A Urine Blood NEGATIVE Urine Nitrite NEGATIVE Urine Bilirubin NEGATIVE Urobilinogen Dipstick NORMAL Urine Leukocytes NEGATIVE Urine WBC (Auto) <10 Urine RBC (Auto) <10 U Epithel Cells (Auto) <10 Urine Bacteria (Auto) NEGATIVE Orders Category Date Time Status CT ABD/PELVIS W/IV CONT ONLY [CT] Stat Exams 10/07/18 08:58 Completed CBC WITH ELECTRONIC DIFF [HEME] Stat Lab 10/07/18 08:12 Completed COMPREHENSIVE METABOLIC PANEL [CHEM] Stat Lab 10/07/18 08:12 Completed OCCULT BLOOD DIAGNOSTIC [STOOL] Stat Lab 10/07/18 07:35 Uncollected PROTIME WITH INR [COAG] Stat Lab 10/07/18 08:12 Completed PTT [COAG] Stat Lab 10/07/18 08:12 Completed URINALYSIS [URINALYSIS] Stat Lab 10/07/18 08:15 Completed hemoccult positive in the ER. Result Diagrams: 10/07/18 08:12 10/07/18 08:12 - CONSULTS/PCP/HOSPITALIST Notification #1 *Consult/PCP/Hospitalist*: Rachel for Hospitalist Time Discussed: 09:59 Consult Disposition: Will see in ED, Admit Departure - Departure Date of Disposition Decision: 10/07/18 Time of Disposition Decision: 09:52 DIAGNOSIS: GI bleeding Disposition: ADMITTED INPATIENT 09 Certified Medical Emergency: Emergent Condition: Fair Referrals and Follow-Ups: Sebas Pop MD [Primary Care Provider] - - Critical Care Note This patient required my direct & personal management of CC.: No Attestation - Physician/ FELIX Attestation Patient care was provided by Advanced Practice Provider:: No The physician spent face to face time with patient:: Yes Advanced Practice Provider documentation review:: Supervising physician onsite and consulted in the evaluation and care of this patient. The physician did have a face to face encounter with the patient.
[2018-10-07] MEDS ORDERED: ZOFRAN IV PRN (11:18)
[2018-10-07] MEDS ORDERED: TYLENOL PO PRN (11:18)
[2018-10-07] MEDS ORDERED: SODIUM CHLORIDE 0.9% INJ ONE (11:18)
[2018-10-07 12:04] LABS: HEMATOCRIT 30.4 % (42.0-52.0); HEMOGLOBIN 10.1 g/dL (14.0-18.0)
[2018-10-07] MEDS ORDERED: NORCO-10 PO PRN (12:54)
[2018-10-07] MEDS: PROTONIX IV SCH (14:12)
--- NOTE | 2018-10-07 16:37 | HISTORY AND PHYSICAL ---
PRIMARY CARE PHYSICIAN: Dr. Sebas Pop. SAS STATISTICAL PROGRAMMER: Dr. Maria. CASTING WHEEL OPERATOR HELPER: Dr. Sandoval. CHIEF COMPLAINT: Rectal bleeding that began this a.m. x 2 with bright red blood. HISTORY OF PRESENTING ILLNESS: This is an 83-year-old male who presents to [facility] after he states he woke up around 1:30 a.m. to have a bowel movement and noted black tarry stool. He woke up again around 4:35 a.m. and went to the bathroom to have a bowel movement and had some bright red blood that filled the toilet of an unknown specified amount. The patient has a history of atrial fibrillation and is on Eliquis. He also states that on September 26 he had an esophageal ablation with Dr. Sandoval and no known complications from that procedure noted. When he arrived, he had stable vital signs with a blood pressure of 104/64. He denied any dizziness, blurred vision, lightheadedness, nausea, vomiting, shortness of breath. His hemoglobin and hematocrit were stable at 11.3 and 33.5. Per the ER physician, stool for occult blood was positive. They also did a CT of the abdomen and pelvis that showed a rather large hiatal hernia but otherwise no acute process. So, he will be admitted for further evaluation and treatment. PAST MEDICAL HISTORY: Asthma, GERD, large hiatal hernia, hypertension, prostate cancer, status post prostatectomy, chronic atrial fibrillation on chronic anticoagulation, bilateral glaucoma, chronic constipation, bilateral fat-containing inguinal herniae. PAST SURGICAL HISTORY: Robotic ventral hernia repair, appendectomy, cholecystectomy, prostatectomy and cataract surgery. FAMILY HISTORY: Mother had hypertension and diabetes. Father had congestive heart failure. SOCIAL HISTORY: He lives with his . He was a smoker for approximately 40 years but has quit for several years now. He denies any alcohol or illicit drug use. ALLERGIES: No known drug allergies. HOME MEDICATIONS: We need to obtain a current list, reconcile, review and restart as appropriate. Will place an order for nursing to update and confirm home medications. LABORATORY DATA: Showed a white blood cell count of 11.40, hemoglobin 11.3, hematocrit 33.5, platelets 358,000. PT and INR 14.4 and 1.04. Sodium 138, potassium 4.6, chloride 102, C02 26, BUN 25, creatinine 1.1, glucose 143. Urinalysis was negative. Stool for occult blood per the ER physician was positive, has not been read per laboratory at this time. Abdomen and pelvic CT showed a rather large hiatal hernia but otherwise no acute process. REVIEW OF SYSTEMS: He denied any fever, chills, blurred vision, dizziness, chest pain, coughing, shortness of breath. He denied any abdominal pain, nausea, vomiting. He does have constipation and states that his bowel movements are normally every 3 days. So, for him to have 2 bowel movements back to back this morning was unusual for him, and he noted they were tarry with some bright red blood. He denied any burning or hurting with urination. PHYSICAL EXAMINATION: VITAL SIGNS: On arrival he had a temperature of 97.4; pulse 105; respirations 20; blood pressure 104/64; satting 100% on room air. GENERAL: This is an 83-year-old male who is lying in the bed and answers questions appropriately. HEENT: Normocephalic, atraumatic. Normal ENT inspection. Oropharynx and nares are clear. Eyes: Pupils are equal, round, and reactive to light and accommodation. Extraocular movements are intact. NECK: Normal inspection. Normal range of motion. LUNGS: Clear to auscultation bilaterally with equal lung expansion and chest wall movement. HEART: Regular rate and rhythm. No murmurs, rubs, or gallops. ABDOMEN: Soft, nontender, nondistended. Bowel sounds are present x 4 quadrants. MUSCULOSKELETAL: He had 5/5 strength x 4 extremities. NEUROLOGICAL: The Cranial nerves II through XII appear grossly intact. ASSESSMENT: 1. GI bleed. 2. History of atrial fibrillation on chronic anticoagulation. 3. History of hypertension. 4. Chronic constipation. PLAN: He will be admitted to the medical floor, placed on telemetry. We will consult GI and place on a clear liquid diet. SCDs for DVT prophylaxis. We will do serial hemoglobin and hematocrit q 6 x 3, place him on Protonix 40 mg IV q 12, Zofran 4 mg IV q 4 hours p.r.n., Tylenol 650 p.o. q 6 p.r.n. We need to update and confirm home medications, and then we will review and restart as appropriate. Of course, we will hold the anticoagulation at this time. Further orders after seen by attending and by consultants. Dictated by ALFONZO Peña for Kita Glasgow MD cc: MD Gilles Gray MD
[2018-10-07 17:58] LABS: HEMATOCRIT 28.5 % (42.0-52.0); HEMOGLOBIN 9.5 g/dL (14.0-18.0)
[2018-10-07] MEDS: XALATAN 0.005% OPH SOLN BOTH EYES SCH (20:47)
[2018-10-07 23:17] LABS: HEMATOCRIT 26.7 % (42.0-52.0)
[2018-10-08] MEDS: SYSTANE EYE DROPS BOTH EYES SCH ×3 (02:10→22:41)
[2018-10-08] MEDS: PROTONIX IV SCH ×2 (03:31→13:32)
[2018-10-08] MEDS ORDERED: SODIUM CHLORIDE 0.9% 10 ML ONE (03:34)
[2018-10-08] MEDS: ADVAIR 500/50 DISKUS INH SCH ×3 (06:16→19:41)
[2018-10-08 07:41] LABS: BASO# 0.03 X1000 (0.0-0.2); BASO% 0.3 % (0.0-0.8); EOS# 0.02 X1000 (0.0-0.7); EOS% 0.2 % (0.0-10.0); HEMOGLOBIN 9.1 g/dL (14.0-18.0); IMM GRAN# 0.09 X1000 (0.0-0.04); IMM GRAN% 0.8 % (0.0-0.5); LYMPH# 2.29 X1000 (1.2-3.4); LYMPH% 19.3 % (20.5-51.1); MCH 31.1 PG (27-31); MCHC 33.7 g/dL (33-37); MCV 92.2 FL (81-99); MONO# 0.77 X1000 (0.11-0.59); MONO% 6.5 % (1.7-9.3); NEUT# 8.67 X1000 (1.4-6.5); NEUT% 72.9 % (42.2-75.2); PLT 332 X1000 (130-400); RBC 2.93 XMIL (4.7-6.1); RDW 12.7 % (11.5-14.5); WBC 11.87 X1000 (4.8-10.8)
[2018-10-08 07:51] LABS: AGAP 11; BUN 31 mg/dL (8-22); CALCIUM 8.1 mg/dL (8.8-10.2); CHLORIDE 105 mmol/L (98-107); COSMO 288; ESTIMATED GFR > 60; GLUCOSE 111 mg/dL (70-104); POTASSIUM 4.1 mmol/L (3.5-5.1); SODIUM 141 mmol/L (136-145); TCO2 25 mmol/L (25-35)
[2018-10-08] MEDS: NORVASC PO SCH (09:31)
[2018-10-08 15:46] LABS: IRON SATURATION 31 %; TIBC 255 ug/dL; TOTAL IRON 80 ug/dL (53-167); UNBOUND IRON 175 ug/dL (112-346)
[2018-10-08 16:04] LABS: FERRITIN 58 ng/mL (30-400)
[2018-10-08] MEDS: MIRALAX PO SCH (17:06)
--- NOTE | 2018-10-08 19:01 | PROGRESS NOTE ---
DATE: 10/08/2018 SUBJECTIVE: This is an 83 [address] by Dr[address] Sebas Pop. He presented to [facility] after he states he woke up around 1:30 a.m. to have a bowel movement and noted black, tarry stool. He woke up again around 4:35 and went to the bathroom to have bowel movement and had some bright red blood, filled the toilet, an unknown specific amount. The patient has a history of atrial fibrillation and is on Eliquis. He also states on 09/26/2018 he had esophageal ablation, per Dr. Sandoval, with no known complications to that procedure. When he arrived he had stable vital signs, blood pressure of 104/64. Denied any dizziness, blurred vision, lightheadedness, nausea, vomiting, or shortness of breath. PAST MEDICAL HISTORY: 1. Asthma. 2. Gastroesophageal reflux disease. 3. Large hiatal hernia. 4. Hypertension. 5. Prostate cancer. 6. Status post prostatectomy. 7. Chronic atrial fibrillation, on chronic anticoagulation. 8. Bilateral glaucoma. 9. Chronic constipation. 10.Bilateral fat-containing inguinal hernias. PAST SURGICAL HISTORY: 1. Robotic ventral hernia repair. 2. Appendectomy. 3. Cholecystectomy. 4. Prostatectomy. 5. Cataract surgery. He was admitted with GI bleed, history of atrial fibrillation, on chronic anticoagulation, history of hypertension, history of chronic constipation. He has gone to the medical floor. GI involved. He reports he feels a little better. No pain at this time. No discomfort at this time. OBJECTIVE: Temperature 97.9, pulse 80, respirations 18, blood pressure 121/50. Pupils are equal and round. No distended neck veins. Lungs are clear in all lung leblanc. Cardiovascular exam with regular rhythm and rate without murmur or S3. Abdomen is soft. Skin is warm and dry. REVIEW OF LABS: White count 11,870, hematocrit 27, hemoglobin 9.1, platelet count 332,000. Sodium 141, potassium 4.1, chloride 105, BUN 31, creatinine 1.0. ASSESSMENT AND PLAN: 1. Gastrointestinal bleed. He is on proton pump inhibitor. History of esophageal ablation. I am not sure what that entailed. 2. History of atrial fibrillation, on anticoagulation. I believe we are holding the anticoagulation at this time. 3. History of hypertension. 4. Chronic constipation. CURRENT ORDERS: He is on Carafate 1 gram p.o. q six hours, he is on Protonix 40 mg IV q 12, Norvasc 10 mg a day, fluticasone salmeterol one puff b.i.d., hydrocodone 10 q six hours, MiraLAX 17 grams q day, and Zofran p.r.n. nausea. We will check another CBC in the morning and follow his hematocrits. They appear stable. His hematocrit is 27 and hemoglobin 9.1. Consult Dr. Gregg Avery. cc: Keenan Eid MD
[2018-10-08] MEDS: CARAFATE LIQUID PO SCH (20:18)
[2018-10-08] MEDS: XALATAN 0.005% OPH SOLN BOTH EYES SCH (20:19)
[2018-10-09] MEDS: PROTONIX IV SCH ×3 (00:16→23:24)
[2018-10-09] MEDS: CARAFATE LIQUID PO SCH ×4 (02:00→21:27)
[2018-10-09 07:19] LABS: BASO# 0.03 X1000 (0.0-0.2); BASO% 0.3 % (0.0-0.8); EOS# 0.05 X1000 (0.0-0.7); EOS% 0.5 % (0.0-10.0); HEMATOCRIT 24.5 % (42.0-52.0); HEMOGLOBIN 8.1 g/dL (14.0-18.0); IMM GRAN# 0.07 X1000 (0.0-0.04); IMM GRAN% 0.7 % (0.0-0.5); LYMPH# 1.94 X1000 (1.2-3.4); LYMPH% 20.6 % (20.5-51.1); MCH 30.8 PG (27-31); MCHC 33.1 g/dL (33-37); MCV 93.2 FL (81-99); MONO# 0.71 X1000 (0.11-0.59); MONO% 7.5 % (1.7-9.3); MPV 9.1 FL (7.4-10.4); NEUT# 6.62 X1000 (1.4-6.5); NEUT% 70.4 % (42.2-75.2); PLT 320 X1000 (130-400); RBC 2.63 XMIL (4.7-6.1); RDW 12.7 % (11.5-14.5); WBC 9.42 X1000 (4.8-10.8)
[2018-10-09] MEDS: ADVAIR 500/50 DISKUS INH SCH ×2 (07:58→19:44)
[2018-10-09] MEDS: MIRALAX PO SCH (08:58)
[2018-10-09] MEDS: NORVASC PO SCH (08:58)
[2018-10-09] MEDS: SYSTANE EYE DROPS BOTH EYES SCH ×2 (08:59→23:24)
[2018-10-09] MEDS ORDERED: SODIUM CHLORIDE 0.9% 10 ML ONE (12:28)
--- NOTE | 2018-10-09 16:21 | PROGRESS NOTE ---
DATE: 10/09/2018 SUBJECTIVE: Mr. St has no complaints. He is afebrile. He is breathing comfortably. He remains afebrile. OBJECTIVE: His temperature is 98.1 degrees, pulse 75, respirations 17, blood pressure 125/53. Pupils are equal and round. Lungs are clear in all lung leblanc. Cardiovascular: Regular rhythm and rate without murmur or S3. Abdomen is soft. Skin is warm and dry. ASSESSMENT AND PLAN: 1. This is an 83--year-old followed by Dr. Sebas Pop, who presented to [facility] after he woke up with a black tarry stool and sign of gastrointestinal bleeding. He is on Eliquis for his atrial fibrillation. He has had esophageal ablation for Aquino's esophagitis. I think the plan is to watch and maybe do an EGD and colonoscopy tomorrow. 2. History of atrial fibrillation. Rate is controlled off anticoagulant at this time. 3. History of hypertension. 4. Chronic constipation. He is on a full liquid diet. I think we will keep him there. I think the plan is to do an endoscopy tomorrow. He is on Protonix 40 mg IV q.12 h. MiraLAX 17 g daily. Fluticasone/salmeterol breathing treatment 1 puff twice a day. Norvasc 10 mg a day. Tylenol 650 mg p.r.n. Carafate 1 g q.6 h. LABORATORY DATA: This morning, hematocrit is 24, hemoglobin 8.1. cc: Keenan Eid MD
--- NOTE | 2018-10-09 18:06 | GASTROENTEROLOGY CONSULTATION ---
DATE: 10/07/2018 ADDENDUM: Full consult to be dictated by ALFONZO Huertas. HISTORY: This is an 83-year-old gentleman, patient of Dr. Sandoval, who has recently undergone cardiac ablation for arrhythmia. He was started on Eliquis and aspirin. Has started having some melenic stool along with some bright red blood per rectum. He was brought to the emergency room with these complaints, and he was admitted to hospital. His recent hemoglobin and hematocrit are 9.5 and 28.5, with normal PT/INR, and his BUN was slightly elevated at 25 with creatinine 1.1. The patient is hemodynamically stable. He seems to have had some blood loss, but is not actively bleeding at this point. PHYSICAL EXAMINATION: Otherwise unremarkable.Vital Signs: Temperature 97.6 degrees, pulse 98 per minute, breathing at 16, blood pressure was 112/61. Abdomen: Full, soft, nontender. Bowel sounds audible. IMPRESSION: Acute gastrointestinal bleed, most likely upper. He has had a history of some melena along with some bright red blood per rectum. He has had some blood loss. His hemoglobin and hematocrit are down, but he does not require any transfusion at this point. PLAN: Hold off on any endoscopic intervention since he is on Eliquis. He has been on Eliquis and his last dose was only last night. I would recheck hemoglobin and hematocrit and transfuse if necessary. In the meantime, continue intravenous Protonix. He was already started on that. Continue hydration and continue on clear liquid and wait. If he can tolerate, intervention to be done after 48 hours from his last dose of Eliquis. I have explained my findings and plan to the patient. He understands and all his pertinent questions were answered. Patient will be picked up by Dr. Sandoval tomorrow. cc: Thomas Boateng MD
[2018-10-09] MEDS: XALATAN 0.005% OPH SOLN BOTH EYES SCH (21:28)
--- NOTE | 2018-10-09 23:48 | PROVIDER PROGRESS NOTE ---
Progress Note SUBJECTIVE: No acute overnight events. Afebrile. No N/V/F, CP, SOB. Minimal epigastric discomfort. Reports odynophagia. He reports still having black stools OBJECTIVE: Last Vital Signs Temp 97.9 F 10/09/18 22:45 Pulse 72 10/09/18 22:45 Resp 20 10/09/18 20:00 BP 108/49 10/09/18 22:45 Pulse Ox 100 10/09/18 20:00 Height 5 ft 10 in Weight 180 lb GEN: awake, alert, NAD HEENT: anicteric, MMM NECK: supple, no jvd CV: RRR, no murmurs PULM: CTAB, no wheezing ABD: soft NT/ND, NABS EXT: no cce NEURO: nonfocal LABS: 10/08/18 10/09/18 07:15 06:48 WBC 9.42 Hgb 9.1 L 8.1 L Plt Count [address] is a 83 year old man with afib on Eliquis and aspirin, hiatal hernia, GERD presented with melena in the setting of recent RFA for Aquino's esophagus. He is clinical stable. His hgb dropped to 8.1 from 9.1. Blood thinners has been held. Minimal epigastric discomfort. #UGIB: suspect esophageal ulceration/esophagitis from recent RFA as cause of bleeding - will keep NPO after MN in case hgb continues to decrease requiring diagnostic EGD - continue PPI IV BID - continue carafate 1gm liquid QID - holding blood thinners, trend H/H daily, transfuse prn goal hgb 7-8 #Aquino's: s/p RFA #Odynophagia: as above; advance to GI soft diet #AFIB: rate-controlled; holding blood thinners #GERD: PPI as above Will follow with you
[2018-10-10] MEDS: CARAFATE LIQUID PO SCH ×4 (02:05→23:31)
[2018-10-10] MEDS: ADVAIR 500/50 DISKUS INH SCH ×2 (08:30→20:12)
[2018-10-10] MEDS: ICAR-C PO SCH ×2 (09:27→23:31)
[2018-10-10] MEDS: SYSTANE EYE DROPS BOTH EYES SCH ×2 (09:27→23:31)
[2018-10-10] MEDS: MIRALAX PO SCH (09:27)
[2018-10-10] MEDS: CENTRUM SILVER PO SCH (09:27)
[2018-10-10] MEDS: NORVASC PO SCH (09:27)
[2018-10-10] MEDS ORDERED: MBX SOLUTION MT PRN (10:19)
[2018-10-10] MEDS: PROTONIX IV SCH ×2 (10:47→23:31)
--- NOTE | 2018-10-10 13:17 | PROGRESS NOTE ---
DATE: 10/10/2018 SUBJECTIVE: Mr. St they have on clear liquids. He still has quite a bit of discomfort. We are watching his blood count. OBJECTIVE: Vital Signs: Temperature 97.9 degrees, pulse 70, respirations 16, blood pressure 128/51. Eyes: Pupils are equal and round. Lungs: Clear in all lung leblanc. Cardiovascular exam: Regular rhythm and rate without murmur or S3. : Urine output is 1200 mL. ASSESSMENT AND PLAN: 1. Patient with atrial fibrillation on Eliquis and aspirin. 2. History of hiatal hernia, gastroesophageal reflux. 3. He had recent radiofrequency ablation for Aquino's esophagus. Hemoglobin dropped to 8.1 from 9.1. He does have epigastric discomfort. I am going to let him try some Magic mouthwash, see if that helps. He is on a proton pump inhibitor high-dose intravenous twice daily, Protonix 40 mg twice daily and he is on Carafate. 4. History of atrial fibrillation, rate controlled. 5. Hypertension. 6. Constipation, which I think is improved. Hematocrit is 24; yesterday was 27. Hemoglobin dropped from 9.1 to 8.1, so continue to follow. REVIEW OF ORDERS: He is on Carafate 1 g p.o. q. 6 hours, Norvasc 10 mg a day, iron, ascorbic acid 1 b.i.d., Protonix 40 mg IV q. 12 hours, MiraLAX 17 grams daily. cc: Keenan Eid MD
--- NOTE | 2018-10-10 15:40 | GASTROENTEROLOGY PROGRESS NOTE ---
DATE: 10/10/2018 SUBJECTIVE: Patient is resting in bed. He is feeling better. He still complains of pain in the chest and upper abdomen after eating solid meals, so we switched it to a clear liquid diet for now. The patient had recent Aquino's ablation done on September 26, 2018 at [facility]. Following that, he developed GI bleeding 3 days ago. He had a bowel movement which was brown. He denies any vomiting blood. OBJECTIVE: Vital signs: Temperature of 97.9 degrees, pulse rate of 71, respiratory rate of 16, blood pressure 120/51, saturating 100% on room air. Body weight of 180 pounds, BMI 25.8 kg/m2. General Appearance: Moderately built, moderately nourished, lying in bed, in no acute distress. HEENT: Pale conjunctivae. No icterus. Pupils equal, reactive to light and accommodation. Neck: Supple. Abdomen: Soft. Mild discomfort in the epigastric region. No rebound. No guarding. Extremities: No cyanosis, clubbing. Neurologic: He is alert, awake, oriented x3. LABS: Hemoglobin and hematocrit are 8.1 and 24.1, white count of 9.42, platelet count of 320,000. Stool for occult blood was positive. IMPRESSION AND PLAN: 1. Upper gastrointestinal bleed. Continue on PPIs IV b.i.d. Continue on Carafate 1 g q.6 hours. Continue to hold blood thinners until the hematocrit stabilizes. Transfuse as needed to keep the hemoglobin more than 7 g/dL. Likely source of bleeding is ulceration in the esophagus from recent radiofrequency ablation for Aquino's esophagus on September 26, 2018 at [facility]. 2. Reflux disease. Continue to follow reflux lifestyle changes. For now we will keep him on a clear liquid diet. 3. Odynophagia. I will continue on the above medicines and continue on a liquid diet for now. 4. Atrial fibrillation is rate controlled. Holding blood thinners. 5. Aquino esophagus. He will continue follow up at [facility]. His next appointment is in November 2018 for RFA. 6. Anemia. Continue watch for now. Transfuse as needed. 7. The above plan of care was discussed with the patient and all questions answered. Please call us with any further questions. cc: MD Sebas Asif MD
--- NOTE | 2018-10-10 18:23 | GASTROENTEROLOGY CONSULTATION ---
DATE: 10/07/2018 REASON FOR CONSULTATION: Rectal bleeding. 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 Sandoval. HISTORY OF PRESENT ILLNESS: This is an 83-year-old male who came into the hospital this morning after having onset of black, tarry stool and bright red rectal bleeding. He reports onset in the middle of the night where it woke him up with abdominal pain, cramping, and gas. Around 4:30 he had a loose bowel movement. He had noticed initial dark stool and then at a second bowel movement he noticed bright red rectal bleeding. At the time of my evaluation on Sunday around lunch time, he had not had any further bleeding since admission, but thereafter the patient had a large amount of bright red rectal bleeding. The patient does follow with Dr. Sandoval. He had been seeing him for Aquino's esophagus with dysplasia. The patient reports having an esophageal ablation at [facility] with Dr. Alves on 09/26/2018. He did well after the procedure except for some mild esophageal/chest pain related to the procedure. The patient does take Eliquis and aspirin for atrial fibrillation. He had his last dose of Eliquis on Sunday night and his last aspirin on Sunday morning. The patient had a CT scan of the abdomen and pelvis that showed a large hiatal hernia. The patient has denied shortness of breath, dizziness, or lightheadedness. He had reported some esophageal pain or chest pain related to his esophageal ablation procedure that was done on 09/26/2018 at [facility]. PAST MEDICAL HISTORY: Asthma, GERD, hypertension, history of prostate cancer, atrial fibrillation, glaucoma, Qauino's esophagus. PAST SURGICAL HISTORY: Robotic hernia repair, appendectomy, cholecystectomy, prostatectomy, cataract surgery, recent esophageal ablation at [facility] for Aquino's esophagus. ALLERGIES: Levaquin, unknown reaction. HOME MEDICATIONS: Albuterol as needed, Norvasc 10 mg daily, Eliquis 5 mg twice a day, aspirin 81 mg daily, Advair inhaler twice a day, Salvo 10/325 every six hours as needed, eye drops every night, Linzess 145 mcg as needed, losartan 100 mg daily, Prilosec 40 mg daily, eye drops twice a day. SOCIAL HISTORY: Denies tobacco use. Rare alcohol use. He is . He does not have children. He has a nephew that helps with his care, who is with him at the time of my evaluation. REVIEW OF SYSTEMS: Per History of Present Illness. PHYSICAL EXAMINATION: VITAL SIGNS: Temperature 97.4, pulse 84, respirations 14, blood pressure 123/66. GENERAL: Patient was awake and alert, in no acute distress. At the time of my evaluation, he had not had any further bleeding, but then had subsequent bright red rectal bleeding, not long after that evaluation. RESPIRATORY: Lung sounds essentially clear. CARDIOVASCULAR: Regular rate and rhythm. ABDOMEN: Soft. Nontender. Positive bowel sounds. EXTREMITIES: No lower extremity edema noted. NEUROLOGIC: Cranial nerves II-XII grossly intact. Patient was awake and alert and in no acute distress. LABORATORY DATA: Hematology: WBC 11.87, hemoglobin 9.1, hematocrit 27.0, MCV 92.2, platelet 332. Chemistry: Sodium 141, potassium 4.1, chloride 105, CO2 25, BUN 31, creatinine 1.1, glucose 111, calcium 8.1, total bilirubin 0.38, AST 9, ALT 8, alkaline phosphatase 48. IMAGING STUDIES: Abdominal and pelvis CT scan showed large hiatal hernia, otherwise no acute process noted. ASSESSMENT AND PLAN: 1. Rectal bleeding. 2. History of atrial fibrillation, on chronic anticoagulation, which currently is held. 3. Aquino's esophagus with recent esophageal ablation at [facility] on 09/26/2018. Patient follows with Dr. Sandoval, who we were covering for yesterday. Continue proton pump inhibitor, monitor hemoglobin and hematocrit. The patient has had subsequent rectal bleeding since admission. Transfuse packed red blood cells if needed. We will continue to follow the patient. Dr. Sandoval will rock picker tomorrow. Further plans will be made as needed. I have discussed this case with Dr. Boateng and Dr. Boateng has also seen the patient. Thank you for this consultation. Dictated by ALFONZO Larios for Thomas Boateng MD cc: ALFONZO Huertas MD
[2018-10-10] MEDS: XALATAN 0.005% OPH SOLN BOTH EYES SCH (23:30)
[2018-10-11] MEDS: CARAFATE LIQUID PO SCH ×2 (03:14→08:44)
[2018-10-11] MEDS: ADVAIR 500/50 DISKUS INH SCH (08:23)
[2018-10-11] MEDS: CENTRUM SILVER PO SCH (08:43)
[2018-10-11] MEDS: MIRALAX PO SCH (08:43)
[2018-10-11] MEDS: SYSTANE EYE DROPS BOTH EYES SCH (08:44)
[2018-10-11] MEDS: ICAR-C PO SCH (08:44)
[2018-10-11] MEDS: NORVASC PO SCH (08:44)
[2018-10-11] MEDS ORDERED: MBX SOLUTION MT SCH (11:00)
--- NOTE | 2018-10-11 11:38 | GASTROENTEROLOGY CONSULTATION ---
DATE: 10/08/2018 PRIMARY CARE PHYSICIAN: Sebas Pop. GOLD ASSAYER: Dr. Maria. ENGLISH AS A SECOND LANGUAGE TEACHER: Dr. Sandoval. REASON FOR CONSULTATION: Melena, acute GI bleeding. HISTORY OF PRESENT ILLNESS: Mr. Kemal St is an 83-year-old gentleman with a past medical history notable for GERD, hiatal hernia, A-fib, on Eliquis and aspirin and Aquino's esophagus with presumably either low grade or high grade dysplasia who recently underwent RFA on 09/26 at [facility] who presents yesterday with acute onset bleeding with black tarry stools. He says he awoke around 1:30 and again at 4:30 with abdominal gas pains and noted having black tarry stools as well as bright red blood per rectum. He says this happened again yesterday while in the hospital up to three times. The last was black and tarry, about 8:00 p.m. last evening. He currently denies any abdominal pain. He has not had any nausea or vomiting, fevers, chest pain, shortness of breath, diarrhea or constipation. He does note having some epigastric discomfort which he attributed to his hiatal hernia that has been ongoing since his procedure at [facility]. REVIEW OF SYSTEMS: As per HPI. Also negative is dizziness, blurred vision and lightheadedness. PAST MEDICAL HISTORY: Asthma, GERD, hiatal hernia, hypertension, prostate cancer, A-fib, glaucoma, chronic constipation, inguinal hernia. PAST SURGICAL HISTORY: Robotic ventral hernia repair in April 2018, appendectomy, cholecystectomy, prostatectomy and cataract surgery. FAMILY HISTORY: Mother with hypertension and diabetes. Father had congestive heart failure. No family history of GI diseases or malignancies. SOCIAL HISTORY: He lives with his . He has a [id number] smoking history. Quit several years ago. No alcohol or drug use. ALLERGIES: Levaquin. HOME MEDICATIONS: Include Eliquis, Norvasc, losartan, omeprazole twice daily, Linzess as needed, MiraLAX, aspirin 81 mg, Advair inhaler, latanoprost eyedrops, albuterol inhaler. PHYSICAL EXAMINATION: Temperature is 97.8, heart rate of 92, respiratory rate 19, blood pressure 128/58, O2 saturation 100% on room air. General: Patient is pleasant, awake, alert, oriented, in no acute distress. He is hard of hearing. HEENT: Sclerae anicteric. Moist mucous membranes. Extraocular motor intact. Neck: His neck is supple. No JVD or lymphadenopathy. Cardiac: Irregularly irregular. No murmurs. Lungs: Clear to auscultation bilaterally. No wheezing. Abdomen: Soft, nontender, nondistended. Normoactive bowel sounds. No rebound or guarding. Extremities: No clubbing, cyanosis, or edema. Neurologic: Nonfocal. Moving all extremities symmetrically. Cranial nerves II through XII grossly intact. LABS: White count of 11.8, hemoglobin is 9.1 from baseline around 11. In April 2018 he had a hemoglobin of 13.3, in 2018 his hemoglobin was 14.5. MCV is 92.2. Platelets of 332,000. INR is 1.04. Sodium 141, potassium 4.1, chloride 105, bicarb 25, BUN of 31, creatinine 1.0, glucose of 111, calcium 8.1. LFTs are unremarkable. UA shows ketones and proteinuria. IMAGING: CT abdomen and pelvis on 10/07 shows rather large hiatal hernia; otherwise no acute process. ASSESSMENT AND PLAN: Mr. Kemal St is an 83-year-old gentleman with past medical history notable for Aquino's esophagus with presumably dysplasia requiring RFA on 09/26, A-fib on Eliquis and aspirin, GERD, large hiatal hernia, who presents with acute onset GI bleed with melena and worsening anemia over the last six months. The patient is clinically stable with normal vital signs although he had had some mild tachycardia on admission. His hemoglobin has remained stable over the last 24 hours with holding his Eliquis and aspirin. I suspect that his bleeding is likely from esophageal ulceration or esophagitis from his recent RFA procedure and we are unlikely to find a treatable lesion if we were to plan a diagnostic EGD at this time. He is currently on a clear liquid diet and IV Protonix twice a day. I discussed the possibility with the patient, his and daughter at the bedtime of needing a diagnostic EGD should his anemia worsen or he develop continuous melena or new onset hematemesis. We will advance his diet to full liquids today, continue to trend his hemoglobin and hematocrit daily, obtain iron studies, B12 and folate and start Carafate liquid four times a day. Other problems: We are holding his blood pressure medications in the setting of his GI bleed. Will continue MiraLAX for history of constipation. Thank you for this consult. Will follow with you. Please call with any questions or concerns.
--- NOTE | 2018-10-11 15:17 | DISCHARGE SUMMARY ---
ADMISSION DATE: 10/07/2018 DISCHARGE DATE: 10/11/2018 HISTORY OF PRESENT ILLNESS: He is a patient of Dr. Sebas Pop who presented on 10/07/2018. An 83-year-old male who presented to [facility] after he states he woke up about 1:30 in the morning, having bowel movement and noted black tarry stool. Woke up again around 4:35, went to the bathroom having a bowel movement with bright red blood filling the toilet, unknown specified amount. The patient was had a history of atrial fibrillation and he is on Eliquis. He also states that on 09/26/2018 he had esophageal ablation per Dr. Sandoval with no known complications from that procedure. When he arrived, he had stable vital signs. Blood pressure was 104/64. Denied any dizziness, blurred vision, lightheadedness, nausea, vomiting, shortness of breath. Hemoglobin and hematocrit were stable at 11.3 and 33. Per the ER physician, his occult blood was positive. CT of the abdomen and pelvis showed a rather large hiatal hernia, but otherwise no acute process. PAST MEDICAL HISTORY: Reviewed again. 1. Asthma. 2. Gastroesophageal reflux. 3. Large hiatal hernia. 4. Hypertension. 5. Prostate cancer. 6. Status post prostatectomy. 7. History of chronic atrial fibrillation on chronic anticoagulation. 8. Bilateral glaucoma. 9. Chronic constipation. 10. Bilateral fat containing inguinal hernias. PAST SURGICAL HISTORY: 1. Robotic ventral hernia repair. 2. Appendectomy. 3. Cholecystectomy. 4. Prostatectomy. 5. Cataract surgery. HOSPITAL COURSE: Admitted with potential GI bleed with history of underlying atrial fibrillation and on anticoagulation. Admitted to the floor on telemetry. GI was asked to see. Was put on sequential compression devices for DVT prophylaxis and checked serial hemoglobin, hematocrit. Put him on Protonix 40 mg IV q.12 h. and Zofran for nausea. GI was consulted. Dr. Willoughby saw for acute GI bleed, most likely upper. Has a history of melena along with some bright red blood and he has had some blood losses. Hemoglobin and hematocrit were down so they held off on the endoscopy and held his Eliquis and followed hemoglobin and hematocrit. Dr. Avery followed as well and did not feel like we would need endoscopy. I suspect that this bleeding was coming from the ulceration from the RFA of the distal esophagus ablation therapy on the distal esophagus and they had him on Carafate 1 g 4 times a day, holding blood thinners, and planned to transfuse if hemoglobin less than 7. [place] he had improved. Has to watch his swallow. Continue to hold the Eliquis. His atrial fibrillation rate was controlled. Hematocrit remained stable. A slow drop. Hematocrit 24 and hemoglobin of 8, and did not have to transfuse. Continue Carafate and high-dose PPI and we will let him go home. I also gave him some Magic mouthwash he can try and use this before meals, see if it helps at all. Plan to discharge him home. DISCHARGE MEDICATIONS: He is on Norvasc 10 mg a day. He can use the Magic mouthwash. He is on fluticasone or Advair 500/50 one puff b.i.d., has [place] 10s and take p.r.n., Icar C1 b.i.d., and multivitamin 1 a day, Protonix we will give him 40 mg p.o. twice a day, MiraLAX 17 g p.o. daily, propylene glycol eyedrops I think he can use as needed, and Carafate 1 g q.6 hours. We are going to hold his Eliquis for a couple more weeks and let his primary care decide when to start that back. cc: Keenan Eid MD
[2018-10-11 16:04] VITALS: BP 142/65
== END 2018-10-11 16:53 | disposition home health service (06) | DRG 381 ==
LOC: ED 07:11 → 3N 10:17 → SUATTDRO 10:17
PROVIDERS: ATTEND Emergency Medicine
CPT/HCPCS: 74177; 80048; 80053; 81001; 82272; 82607; 82728; 82746; 83540; 83550; 85014; 85018; 85025; 85610; 85730; 94640; 94761; 99285; A9270; C9113; Q9967; S0164